=== PATIENT | male | born 1930 | race Caucasian/White ===

== ENCOUNTER 2018-02-08 21:30 | Emergency (ER) | payer MEDICARE, BC ==
--- NOTE | 2018-02-08 23:37 | EDM.PDOC ---
ED HPI GENERAL MEDICAL PROBLEM - General Chief Complaint: General Stated Complaint: WEAKNESS Time Seen by Provider: 02/08/18 21:43 Source of Information: Reports: Patient, Family (son) History Limitations: Reports: Altered Mental Status, Physical Impairment - History of Present Illness INITIAL COMMENTS - FREE TEXT/NARRATIVE: 87 y.o.w.m with a h/o multiple CVAs came to the ed with his son after he was expost to extreme heat at his [place] apartment. As per son, temp was >90 F. his dad had difficulty to ambulate which prompted the son to bring his dad to our ed. As the Pt arrived, he was OX3 and did not have acute focal neurological weaknesses, no acute medical issues. BP 171/89 Pulse 104 RR 18 Pulse ox 94% on RA Onset Date: 02/08/18 Onset Time: 07:00 Duration: Hour(s): Location: Reports: Generalized Quality: Reports: Same as Previous Episode Improves with: Reports: Rest Worsens with: Reports: Movement Context: Reports: Other (H/O CVAs) Associated Symptoms: Reports: Loss of Appetite, Shortness of Breath - Related Data Allergies Allergy/AdvReac Type Severity Reaction Status Date / Time cephalexin monohydrate Allergy Vomiting Verified 02/08/18 21:39 [From Keflex] morphine Allergy Confusion Verified 02/08/18 21:39 amoxicillin trihydrate AdvReac Nausea and Verified 02/08/18 21:39 [From Augmentin] Vomiting codeine AdvReac Nausea and Verified 02/08/18 21:39 Vomiting hydrocodone AdvReac Nausea and Verified 02/08/18 21:39 Vomiting potassium clavulanate AdvReac Nausea and Verified 02/08/18 21:39 [From Augmentin] Vomiting simvastatin AdvReac Muscle Verified 02/08/18 21:39 Aches Home Meds: Home Meds . [Unable to Verify Home Med List] 02/08/18 [History] Past Medical History Respiratory History: Reports: COPD Neurological History: Reports: CVA - Past Surgical History Other Musculoskeletal Surgeries/Procedures:: BACK SURGERY, PARTIAL FINGER AMPUTATION Social & Family History - Tobacco Use Smoking Status *Q: Former Smoker Used Tobacco, but Quit: Yes Month/Year Tobacco Last Used: 2012 - Living Situation & Occupation Living situation: Reports: ED ROS GENERAL - Review of Systems Review Of Systems: Unable To Obtain ED EXAM, GENERAL - Physical Exam Exam: See Below Exam Limited By: Altered Mental Status General Appearance: Alert, WD/WN, Mild Distress Eye Exam: Bilateral Eye: Normal Inspection Ears: Normal External Exam Ear Exam: Bilateral Ear: Auricle Normal Nose: Normal Inspection, Normal Mucosa, No Blood Throat/Mouth: Normal Inspection, Normal Lips, Normal Gums, Normal Voice, No Airway Compromise Head: Atraumatic, Normocephalic Neck: Normal Inspection, Supple, Non-Tender, Full Range of Motion Respiratory/Chest: No Respiratory Distress, Normal Breath Sounds, No Accessory Muscle Use, Rhonchi Cardiovascular: Normal Peripheral Pulses, Regular Rate, Rhythm, No Edema, No Gallop, No JVD, No Murmur, No Rub GI/Abdominal: Normal Bowel Sounds, Soft, Non-Tender, No Organomegaly, No Abnormal Bruit, No Mass, Pelvis Stable (Male) Exam: Deferred Rectal (Males) Exam: Deferred Back Exam: Normal Inspection Extremities: Normal Inspection, Normal Range of Motion, Non-Tender, No Pedal Edema Neurological: Alert, Oriented, CN II-XII Intact, Normal Cognition, Abnormal Gait (walks with walker) Psychiatric: Normal Affect, Normal Mood Skin Exam: Warm, Dry, Intact, Normal Color, No Rash Lymphatic: No Adenopathy Course - Vital Signs Text/Narrative:: 87 y.o.w.m with a h/o multiple CVAs came to the ed with his son after he was expost to extreme heat at his [facility] apartment. As per son, temp was >90 F. his dad had difficulty to ambulate which prompted the son to bring his dad to our ed. As the Pt arrived, he was OX3 and did not have acute focal neurological weaknesses, no acute medical issues. BP 171/89 Pulse 104 RR 18 Pulse ox 94% on RA PE: weak appearing 87 y.o.w.m with a h/o CVAs and HTN CXR: NAD Impression: H/O ministrokes, Gen weakness, dehydration Tx: Water Reexam: Improved Plan: D/C with instructions with his son Last Recorded V/S: Last Vital Signs Temp 37.0 C 02/08/18 21:43 Pulse 94 02/08/18 21:45 Resp 24 H 02/08/18 23:15 BP 182/91 H 02/08/18 23:15 Pulse Ox 97 02/08/18 23:15 - Orders/Labs/Meds Orders: Active Orders 24 hr Category Date Time Status Chest 1V Frontal [CR] Stat Exams 02/08/18 22:27 Taken UA W/MICROSCOPIC [URIN] Stat Lab 02/08/18 23:20 Ordered Labs: Laboratory Tests 02/08/18 02/08/18 02/08/18 Range/Units 22:36 22:36 22:36 WBC 8.9 (4.5-12.0) X10-3/uL RBC 4.07 L (4.30-5.75) x10(6)uL Hgb 12.4 (11.5-15.5) g/dL Hct 36.8 (30.0-51.3) % MCV 90.3 (80-96) fL MCH 30.5 (27.7-33.6) pg MCHC 33.8 (32.2-35.4) g/dL RDW 15.4 (11.5-15.5) % Plt Count 268 (125-369) X10(3)uL MPV 8.2 (7.4-10.4) fL Neut % (Auto) 74.3 (46-82) % Lymph % (Auto) 11.5 L (13-37) % [place] % (Auto) 8.1 (4-12) % Eos % (Auto) 3 (1.0-5.0) % Baso % (Auto) 3 H (0-2) % Neut # (Auto) 6.6 (1.6-8.3) # Lymph # (Auto) 1.0 (0.6-5.0) # [place] # (Auto) 0.7 (0.0-1.3) # Eos # (Auto) 0.3 (0.0-0.8) # Baso # (Auto) 0.3 H (0.0-0.2) # Sodium 135 (135-145) mmol/L Potassium 4.2 (3.5-5.3) mmol/L Chloride 100 (100-110) mmol/L Carbon Dioxide 28 (21-32) mmol/L BUN 25 H (7-18) mg/dL Creatinine 1.1 (0.70-1.30) mg/dL Est Cr Clr Drug Dosing TNP Estimated GFR (MDRD) > 60 (>60) BUN/Creatinine Ratio 22.7 H (9-20) Glucose 118 H (80-116) mg/dL Lactic Acid 0.8 (0.4-2.2) mmol/L Calcium 9.0 (8.6-10.2) mg/dL Total Bilirubin 0.5 (0.1-1.3) mg/dL Direct Bilirubin 0.07 L (0.10-0.20) mg/dL AST 24 (5-25) IU/L ALT 21 (12-36) U/L Alkaline Phosphatase 70 (56-112) IU/L Total Protein 6.9 (6.0-8.0) g/dL Albumin 3.7 (3.2-4.6) g/dL Urine Color (YELLOW) Urine Appearance (CLEAR) Urine pH (5.0-6.5) Ur Specific [place] (1.010-1.025) Urine Protein (NEGATIVE) mg/dL Urine Glucose (UA) (NEGATIVE) mg/dL Urine Ketones (NEGATIVE) mg/dL Urine Occult Blood (NEGATIVE) Urine Nitrite (NEGATIVE) Urine Bilirubin (NEGATIVE) Urine Urobilinogen (NEGATIVE) mg/dL Ur Leukocyte Esterase (NEGATIVE) Urine RBC (0) Urine WBC (0) Ur Squamous Epith Cells (NS,R,O) Urine Bacteria (NS) 02/08/18 Range/Units 23:20 WBC (4.5-12.0) X10-3/uL RBC (4.30-5.75) x10(6)uL Hgb (11.5-15.5) g/dL Hct (30.0-51.3) % MCV (80-96) fL MCH (27.7-33.6) pg MCHC (32.2-35.4) g/dL RDW (11.5-15.5) % Plt Count (125-369) X10(3)uL MPV (7.4-10.4) fL Neut % (Auto) (46-82) % Lymph % (Auto) (13-37) % [place] % (Auto) (4-12) % Eos % (Auto) (1.0-5.0) % Baso % (Auto) (0-2) % Neut # (Auto) (1.6-8.3) # Lymph # (Auto) (0.6-5.0) # [place] # (Auto) (0.0-1.3) # Eos # (Auto) (0.0-0.8) # Baso # (Auto) (0.0-0.2) # Sodium (135-145) mmol/L Potassium (3.5-5.3) mmol/L Chloride (100-110) mmol/L Carbon Dioxide (21-32) mmol/L BUN (7-18) mg/dL Creatinine (0.70-1.30) mg/dL Est Cr Clr Drug Dosing Estimated GFR (MDRD) (>60) BUN/Creatinine Ratio (9-20) Glucose (80-116) mg/dL Lactic Acid (0.4-2.2) mmol/L Calcium (8.6-10.2) mg/dL Total Bilirubin (0.1-1.3) mg/dL Direct Bilirubin (0.10-0.20) mg/dL AST (5-25) IU/L ALT (12-36) U/L Alkaline Phosphatase (56-112) IU/L Total Protein (6.0-8.0) g/dL Albumin (3.2-4.6) g/dL Urine Color Yellow (YELLOW) Urine Appearance Clear (CLEAR) Urine pH 5.0 (5.0-6.5) Ur Specific [place] 1.025 (1.010-1.025) Urine Protein Negative (NEGATIVE) mg/dL Urine Glucose (UA) Normal (NEGATIVE) mg/dL Urine Ketones Negative (NEGATIVE) mg/dL Urine Occult Blood Negative (NEGATIVE) Urine Nitrite Negative (NEGATIVE) Urine Bilirubin Negative (NEGATIVE) Urine Urobilinogen Normal (NEGATIVE) mg/dL Ur Leukocyte Esterase Negative (NEGATIVE) Urine RBC 0-5 (0) Urine WBC 0-5 (0) Ur Squamous Epith Cells Occasional (NS,R,O) Urine Bacteria Few H (NS) Departure - Departure Time of Disposition: 23:47 Disposition: Home, Self-Care 01 Condition: Good Clinical Impression: Dehydration, H/O: CVA (cerebrovascular accident) - Discharge Information Referrals: Abraham Templeton MD [Primary Care Provider] - Forms: ED Department Discharge Additional Instructions: Please increase water intake, please con your meds, please f/u, come back if acutely worse. - My Orders Last 24 Hours: My Active Orders 02/08/18 22:27 Chest 1V Frontal [CR] Stat 02/08/18 23:20 UA W/MICROSCOPIC [URIN] Stat - Assessment/Plan Last 24 Hours: My Active Orders 02/08/18 22:27 Chest 1V Frontal [CR] Stat 02/08/18 23:20 UA W/MICROSCOPIC [URIN] Stat
[2018-02-08 23:44] VITALS: BP 182/91
--- NOTE | 2018-02-10 13:16 | CR ---
INDICATION: Short of breath. CHEST: A portable AP upright view of the chest 02/08/2018 was compared with 01/2012 and 11/12/2014. The heart did not appear grossly enlarged. The aorta is tortuous with calcification in the arch. Overlying EKG leads and snaps are noted. A definite active infiltrate or effusion was not identified. However, markings are somewhat heavy at the left lung base, making it difficult to exclude minimal patchy bronchopneumonia. Full inspiration PA and lateral views of the chest may be helpful when clinically possible. IMPRESSION: Cannot exclude patchy bronchopneumonia at the left lower lobe area and lingula. Full inspiration PA and lateral views of the chest may be helpful for further evaluation. MTDD
== END 2018-02-08 23:53 | disposition home or self-care (01) ==
LOC: FB.ED 21:30
DX: E86.0 Dehydration (principal); I10 Essential (primary) hypertension; J44.9 Chronic obstructive pulmonary disease, unspecified; Z87.891 Personal history of nicotine dependence; Z88.8 Allergy status to other drugs, medicaments and biological substances; Z86.73 Personal history of transient ischemic attack (TIA), and cerebral infarction without residual deficits
CPT/HCPCS: 36415; 71045; 80048; 80076; 81001; 83605; 85025; 99285

== ENCOUNTER 2018-02-24 09:12 | Emergency (ER) | payer MEDICARE, BC ==
[2018-02-24] MEDS ORDERED: Ketorolac 30 MG/ML SDV IM ONE (09:48)
--- NOTE | 2018-02-24 10:06 | EDM.PDOC ---
ED HPI GENERAL MEDICAL PROBLEM - General Chief Complaint: Back Pain or Injury Stated Complaint: LOW BACK PAIN Time Seen by Provider: 02/24/18 09:30 Source of Information: Reports: Patient, Family History Limitations: Reports: No Limitations - History of Present Illness INITIAL COMMENTS - FREE TEXT/NARRATIVE: John comes to [facility] ED for management of low back pain following a fall last weekend. He saw a DC yesterday for adjustments, but back pain seemed to escalate last pm. He has not been med compliant with NSAIDs for chronic back pain related to Lumbar Stenosis. Other hx includes COPD and PVD. - Related Data Allergies Allergy/AdvReac Type Severity Reaction Status Date / Time cephalexin monohydrate Allergy Vomiting Verified 02/08/18 21:39 [From Keflex] morphine Allergy Confusion Verified 02/08/18 21:39 amoxicillin trihydrate AdvReac Nausea and Verified 02/08/18 21:39 [From Augmentin] Vomiting codeine AdvReac Nausea and Verified 02/08/18 21:39 Vomiting hydrocodone AdvReac Nausea and Verified 02/08/18 21:39 Vomiting potassium clavulanate AdvReac Nausea and Verified 02/08/18 21:39 [From Augmentin] Vomiting simvastatin AdvReac Muscle Verified 02/08/18 21:39 Aches Home Meds: Home Meds traMADol [Ultram] 50 mg PO Q6H PRN #20 tab 02/24/18 [Rx] Past Medical History Respiratory History: Reports: COPD Neurological History: Reports: CVA - Past Surgical History Other Musculoskeletal Surgeries/Procedures:: BACK SURGERY, PARTIAL FINGER AMPUTATION Social & Family History - Living Situation & Occupation Living situation: Reports: ED ROS GENERAL - Review of Systems Review Of Systems: See Below Constitutional: Reports: Malaise HEENT: Reports: No Symptoms Respiratory: Reports: Shortness of Breath Cardiovascular: Reports: Claudication, Dyspnea on Exertion Endocrine: Reports: No Symptoms GI/Abdominal: Reports: No Symptoms : Reports: No Symptoms Musculoskeletal: Reports: Back Pain Skin: Reports: Bruising Neurological: Reports: Pre-Existing Deficit (Hx CVA), Tingling, Difficulty Walking, Weakness Psychiatric: Reports: Other (memory impairments) Hematologic/Lymphatic: Reports: No Symptoms Immunologic: Reports: No Symptoms ED EXAM,LOWER BACK PAIN/INJURY - Physical Exam Exam: See Below Exam Limited By: No Limitations General Appearance: Alert, WD/WN, No Apparent Distress, Thin Head: Atraumatic, Normocephalic Neck: Normal Inspection, Supple, Non-Tender Respiratory/Chest: No Respiratory Distress, No Accessory Muscle Use, Decreased Breath Sounds, Crackles, Prolonged Expiration Cardiovascular: Regular Rate, Rhythm, No Edema, No JVD, No Murmur GI/Abdominal: Normal Bowel Sounds, Soft, Non-Tender, No Organomegaly, No Distention, No Mass (Male) Exam: No Hernia Rectal (Males) Exam: Deferred Back Exam: Decreased Range of Motion, Paraspinal Tenderness Extremities: Non-Tender, No Pedal Edema, Limited Range of Motion (RSLR R>L), Other (no palp pulse L foot) Neurological: Alert, CN II-XII Intact, Normal Plantar Flexion, Oriented x 3 Psychiatric: Normal Mood, Flat Affect Skin Exam: Dry, Cool (L foot) Lymphatic: No Adenopathy Course - Vital Signs Text/Narrative:: Following assessment at the [facility] ED, I administered Toradol 30 mg IM, and sent patient to Diagnostic Imaging for Lumbar Spine: compressoin fx L1, age unknown. I discussed case with radiologist, and will order a limited bone scan to rule out a new compression fx. Family is in agreement. I dispensed Tramadol 50 mg q 6 hrs for breakthrough pain pending results of bone scan. - Orders/Labs/Meds Orders: Active Orders 24 hr Category Date Time Status Bone Scan Limited [NM] Stat Exams 02/24/18 10:53 Ordered Lumbar Spine 2 or 3V [CR] Stat Exams 02/24/18 10:06 Taken Meds: Medications Discontinued Medications Generic Name Dose Route Start Last Admin Trade Name Kasia PRN Reason Stop Dose Admin Ketorolac Tromethamine 30 mg 02/24/18 09:48 02/24/18 10:03 Toradol IM 02/24/18 09:49 30 mg ONETIME ONE Administration Departure - Departure Time of Disposition: 10:58 Disposition: Home, Self-Care 01 Condition: Fair Clinical Impression: Back pain due to injury - Discharge Information Prescriptions: traMADol [Ultram] 50 mg PO Q6H PRN #20 tab PRN Reason: Breakthrough Pain Referrals: Abraham Templeton MD [Primary Care Provider] - Forms: ED Department Discharge - Problem List & Annotations (1) Back pain due to injury SNOMED Code(s): 501145584, 723724536 Code(s): S39.92XA - UNSPECIFIED INJURY OF LOWER BACK, INITIAL ENCOUNTER Status: Acute Current Visit: Yes Annotation/Comment:: I dispensed Tramadol 50 mg q 6 hrs prn for back pain. A bone scan is being scheduled for this week to rule out a new compression fx. [facility] or prospect of SNF if sxs persist. - Problem List Review Problem List Initiated/Reviewed/Updated: Yes - My Orders Last 24 Hours: My Active Orders 02/24/18 10:06 Lumbar Spine 2 or 3V [CR] Stat 02/24/18 10:53 Bone Scan Limited [NM] Stat - Assessment/Plan Last 24 Hours: My Active Orders 02/24/18 10:06 Lumbar Spine 2 or 3V [CR] Stat 02/24/18 10:53 Bone Scan Limited [NM] Stat Plan: Follow up with PCP.
--- NOTE | 2018-02-24 12:01 | CR ---
INDICATION: Fell last Friday, low back pain, history of spinal stenosis. LUMBOSACRAL SPINE: Three views of the lumbosacral spine were obtained 2017 and were compared with MRI dated 01/31/2015. Diminished bone density is suggested with a severe osteoporotic compression fracture at L1, which is of indeterminate age. It is new, however, compared with an MRI dated 01/31/2015. Even if most of the compression is old, a new minimal compression could also be present. Depending upon clinical correlation, the age of the fracture could be further determined by nuclear medicine bone imaging or MRI, as felt to be necessary clinically. Decreased disk space is suggested at L5-S1. Hypertrophic degenerative changes are noted off vertebral bodies anteriorly at L2-3 to a mild degree, L3-4 to a mild to moderate degree, L4-5 to a mild to moderate degree, and to a moderate degree at L5-S1. Sclerosis at the L5-S1 apophyseal joints is also suggested with hypertrophic change there. Incidentally noted were calcifications in the abdominal aorta and iliac arteries. A stimulator wire is noted in place posteriorly at the lumbar spine. IMPRESSION: 1. 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 2. Degenerative disk disease L5-S1 with hypertrophic degenerative changes at L2 through S1. 3. ASD. Report was given in person to Dr. Araya soon after the examination was completed on 02/24/2018. [facility]
[2018-02-24 14:42] VITALS: BP 149/56
== END 2018-02-24 11:32 | disposition home or self-care (01) ==
LOC: FB.ED 09:12
DX: S39.92XA Unspecified injury of lower back, initial encounter (principal); Z88.5 Allergy status to narcotic agent; Z88.6 Allergy status to analgesic agent; X50.0XXA Overexertion from strenuous movement or load, initial encounter
CPT/HCPCS: 72100; 96372; 99284; J1885

== ENCOUNTER 2019-03-02 13:31 | Observation (INO) | payer MEDICARE, BC ==
[2019-03-02] MEDS ORDERED: NAPROXEN SODIUM 220 MG PO PRN (14:40)
[2019-03-02] MEDS: methylPREDNISolone Sodium Succinate 125 MG/2 ML SDV IVPUSH SCH (16:25)
[2019-03-02] MEDS: Azithromycin 500 MG in Sodium Chloride 0.9% 250 ML IV SCH (16:25)
[2019-03-02] MEDS: Albuterol/Ipratropium 3.0-0.5 MG/3 ML Neb Soln *PTOM NEB SCH ×2 (16:25→21:11)
[2019-03-02] MEDS: Sodium Chloride 0.9% 10 ML Syringe FLUSH PRN ×2 (16:26→20:37)
[2019-03-02] MEDS ORDERED: Albuterol/Ipratropium 3.0-0.5 MG/3 ML Neb Soln *PTOM NEB PRN (16:37)
--- NOTE | 2019-03-02 17:59 | PCM.HP ---
H&P History of Present Illness - General Date of Service: 03/02/19 Admit Problem/Dx: Admission Diagnosis/Problem Admission Diagnosis/Problem COPD with acute lower respiratory infection Source of Information: Patient, Old Records History Limitations: Reports: No Limitations - History of Present Illness Initial Comments - Free Text/Narative: Generalities and 88-year-old male from to [facility]. He was admitted directly from the clinic because of progressive shortness of breath. He has a history of pulmonary fibrosis but the last one week he has had cough,wheezing and increasing shortness of breath, needing continuous oxygen supplementation. Typically he uses oxygen at night only.He denies chest pain fever or chills. Generalized also has a history [id number] peripheral vascular disease, and also arthritis of the major joints.These have been stable. - Related Data Allergies/Adverse Reactions: Allergies Allergy/AdvReac Type Severity Reaction Status Date / Time cephalexin monohydrate Allergy Vomiting Verified 02/08/18 21:39 [From Keflex] morphine Allergy Confusion Verified 02/08/18 21:39 amoxicillin trihydrate AdvReac Nausea and Verified 02/08/18 21:39 [From Augmentin] Vomiting codeine AdvReac Nausea and Verified 02/08/18 21:39 Vomiting hydrocodone AdvReac Nausea and Verified 02/08/18 21:39 Vomiting potassium clavulanate AdvReac Nausea and Verified 02/08/18 21:39 [From Augmentin] Vomiting simvastatin AdvReac Muscle Verified 02/08/18 21:39 Aches Home Medications: Home Meds Budesonide/Formoterol [Symbicort 80-4.5 MCG] 2 puff INH BID 02/24/18 [History] Dextran 70/Hypromellose [Artificial Tears] 1 - 2 drop EYEBOTH TID 02/24/18 [ History] Finasteride 5 mg PO DAILY 02/24/18 [History] Naproxen Sodium [Aleve] 440 mg PO BID PRN 02/24/18 [History] Sertraline [Zoloft] 200 mg PO DAILY 02/24/18 [History] Tamsulosin [Flomax] 0.4 mg PO DAILY 02/24/18 [History] Temazepam 15 mg PO BEDTIME 02/24/18 [History] Albuterol/Ipratropium [DuoNeb 3.0-0.5 MG/3 ML] 3 ml IH Q4H PRN 03/02/19 [History ] Albuterol/Ipratropium [DuoNeb 3.0-0.5 MG/3 ML] 3 ml IH TID 03/02/19 [History] Furosemide 40 mg PO DAILY 03/02/19 [History] Tiotropium [place] [Spiriva Respimat] 2 puff IH DAILY 03/02/19 [History] Past Medical History HEENT History: Reports: Cataract, Hard of Hearing, Impaired Vision Cardiovascular History: Reports: PVD Respiratory History: Reports: Bronchitis, Recurrent, COPD Neurological History: Reports: CVA - Infectious Disease History Infectious Disease History: Reports: None - Past Surgical History HEENT Surgical History: Reports: Cataract Surgery Other Musculoskeletal Surgeries/Procedures:: BACK SURGERY, PARTIAL FINGER AMPUTATION Social & Family History - Family History Family Medical History: Noncontributory - Tobacco Use Smoking Status *Q: Former Smoker Years of Tobacco use: 68 Used Tobacco, but Quit: Yes Month/Year Tobacco Last Used: Sep 2014 Tobacco Use Comment: patient unsure of exact date of quiting, states it was when he moved into [facility] [employer] Smoke Exposure: No - Caffeine Use Caffeine Use: Reports: Coffee - Alcohol Use Days Per Week of Alcohol Use: 1 Number of Drinks Per Day: 1 Total Drinks Per Week: 1 Date of Last Drink: 03/01/19 Time of Last Drink: 18:30 - Recreational Drug Use Recreational Drug Use: No - Living Situation & Occupation Living situation: Reports: H&P Review of Systems - Review of Systems: Review Of Systems: ROS reveals no pertinent complaints other than HPI. Exam - Exam Exam: See Below - Vital Signs Vital Signs: Last Vital Signs Temp 99.5 F 03/02/19 14:21 Pulse 98 03/02/19 16:33 Resp 20 03/02/19 14:21 BP 113/63 03/02/19 14:21 Pulse Ox 98 03/02/19 16:33 Weight: 78.8 kg - Exam Quality Assessment: Supplemental Oxygen General: Alert, Oriented, 4 HEENT: PERRLA, Hearing Intact, Mucosa Moist & [place], Nares Patent, Normal Nasal Septum, Posterior Pharynx Clear, Conjunctiva Clear, EOMI, EACs Clear, TMs Clear Neck: Supple, Trachea Midline, 2 Lungs: Decreased Breath Sounds, Rhonchi Cardiovascular: Regular Rate, Regular Rhythm GI/Abdominal Exam: Normal Bowel Sounds, Soft, Non-Tender, No Organomegaly, No Distention, No Abnormal Bruit, No Mass, Pelvis Stable (Male) Exam: Deferred Rectal (Males) Exam: Deferred Back Exam: Normal Inspection, Full Range of Motion, NT Extremities: Normal Inspection, Normal Range of Motion, Non-Tender, No Pedal Edema, Normal Capillary Refill Skin: Warm, Dry, Intact Neurological: Cranial Nerves Intact, Reflexes Equal Bilateral Neuro Extensive - Mental Status: Alert, Oriented x3, Normal Mood/Affect, Normal Cognition Neuro Extensive - Motor, Sensory, Reflexes: CN II-XII Intact, Normal Gait, Normal Reflexes Psychiatric: Alert, Normal Affect, Normal Mood - Patient Data Lab Results Last 24 hrs: Laboratory Results - last 24 hr 03/02/19 03/02/19 03/02/19 Range/Units 14:40 14:40 14:40 WBC 11.4 (4.5-12.0) X10-3/uL RBC 3.86 L (4.30-5.75) x10(6)uL Hgb 12.2 L (13.5-17.8) g/dL Hct 34.9 (30.0-51.3) % MCV 90.3 (80-96) fL MCH 31.6 (27.7-33.6) pg MCHC 35.0 (32.2-35.4) g/dL RDW 14.6 (11.5-15.5) % Plt Count 322 (125-369) X10(3)uL MPV 8.5 (7.4-10.4) fL Neut % (Auto) 73.7 (46-82) % Lymph % (Auto) 12.7 L (13-37) % [place] % (Auto) 6.3 (4-12) % Eos % (Auto) 3 (1.0-5.0) % Baso % (Auto) 4 H (0-2) % Neut # (Auto) 8.3 (1.6-8.3) # Lymph # (Auto) 1.5 (0.6-5.0) # [place] # (Auto) 0.7 (0.0-1.3) # Eos # (Auto) 0.4 (0.0-0.8) # Baso # (Auto) 0.5 H (0.0-0.2) # D-Dimer, Quantitative 1.79 H (0.0-0.59) mg/LFEU Sodium 141 (135-145) mmol/L Potassium 3.8 (3.5-5.3) mmol/L Chloride 103 (100-110) mmol/L Carbon Dioxide 30 (21-32) mmol/L BUN 30 H (7-18) mg/dL Creatinine 1.4 H (0.70-1.30) mg/dL Est Cr Clr Drug Dosing 39.11 mL/min Estimated GFR (MDRD) 48 L (>60) BUN/Creatinine Ratio 21.4 H (9-20) Glucose 105 (80-116) mg/dL Calcium 8.8 (8.6-10.2) mg/dL Total Bilirubin 0.3 (0.1-1.3) mg/dL AST 19 D (5-25) IU/L ALT 26 D (12-36) U/L Alkaline Phosphatase 71 (56-112) IU/L Troponin I (<0.017-0.056) ng/mL NT-Pro-B Natriuret Pep (<=450) pg/mL Total Protein 6.5 (6.0-8.0) g/dL Albumin 3.2 (3.2-4.6) g/dL Globulin 3.3 g/dL Albumin/Globulin Ratio 1.0 /18/19 Range/Units 14:40 WBC (4.5-12.0) X10-3/uL RBC (4.30-5.75) x10(6)uL Hgb (13.5-17.8) g/dL Hct (30.0-51.3) % MCV (80-96) fL MCH (27.7-33.6) pg MCHC (32.2-35.4) g/dL RDW (11.5-15.5) % Plt Count (125-369) X10(3)uL MPV (7.4-10.4) fL Neut % (Auto) (46-82) % Lymph % (Auto) (13-37) % [place] % (Auto) (4-12) % Eos % (Auto) (1.0-5.0) % Baso % (Auto) (0-2) % Neut # (Auto) (1.6-8.3) # Lymph # (Auto) (0.6-5.0) # [place] # (Auto) (0.0-1.3) # Eos # (Auto) (0.0-0.8) # Baso # (Auto) (0.0-0.2) # D-Dimer, Quantitative (0.0-0.59) mg/LFEU Sodium (135-145) mmol/L Potassium (3.5-5.3) mmol/L Chloride (100-110) mmol/L Carbon Dioxide (21-32) mmol/L BUN (7-18) mg/dL Creatinine (0.70-1.30) mg/dL Est Cr Clr Drug Dosing mL/min Estimated GFR (MDRD) (>60) BUN/Creatinine Ratio (9-20) Glucose (80-116) mg/dL Calcium (8.6-10.2) mg/dL Total Bilirubin (0.1-1.3) mg/dL AST (5-25) IU/L ALT (12-36) U/L Alkaline Phosphatase (56-112) IU/L Troponin I < 0.017 L (<0.017-0.056) ng/mL NT-Pro-B Natriuret Pep 841 H (<=450) pg/mL Total Protein (6.0-8.0) g/dL Albumin (3.2-4.6) g/dL Globulin g/dL Albumin/Globulin Ratio Result Diagrams: 03/02/19 14:40 03/02/19 14:40 EKG INTERPRETATION Rhythm: NSR - Problem List (1) COLD, Chronic obstructive lung disease SNOMED Code(s): 74069860 ICD Code: J44.9 - CHRONIC OBSTRUCTIVE PULMONARY DISEASE, UNSPECIFIED Status : Acute Current Visit: No (2) PAD (peripheral artery disease) SNOMED Code(s): 661669719, 228371456 ICD Code: I73.9 - PERIPHERAL VASCULAR DISEASE, UNSPECIFIED Status: Acute Current Visit: Yes (3) H/O CHF SNOMED Code(s): 876989351 ICD Code: Z86.79 - PERSONAL HISTORY OF OTHER DISEASES OF THE CIRCULATORY SYSTEM Status: Acute Current Visit: Yes (4) MDD (major depressive disorder) SNOMED Code(s): 741124396 ICD Code: F32.9 - MAJOR DEPRESSIVE DISORDER, SINGLE EPISODE, UNSPECIFIED Status: Acute Current Visit: Yes Problem List Initiated/Reviewed/Updated: Yes Orders Last 24hrs: Active Orders 24 hr Category Date Time Status Patient Status [ADT] Routine ADT 03/02/19 14:37 Active EKG Documentation Completion [RC] ASDIRECTED Care 03/02/19 14:39 Active Height and Weight [RC] DAILY Care 03/02/19 14:37 Active Oxygen Therapy [RC] PRN Care 03/02/19 14:37 Active RT Aerosol Therapy [RC] ASDIRECTED Care 03/02/19 14:38 Active Up With Assistance [RC] ASDIRECTED Care 03/02/19 14:37 Active VTE/DVT Education [RC] Per Unit Routine Care 03/02/19 14:37 Active Vital Signs [RC] Q8H Care 03/02/19 14:37 Active Regular Diet [DIET] Diet 03/02/19 Breakfast Active Chest w Cont [CT] Routine Exams 03/02/19 17:54 Ordered Albuterol/Ipratropium [DuoNeb 3.0-0.5 MG/3 ML] Med 03/02/19 16:37 Active 3 ml NEB Q6H PRN Albuterol/Ipratropium [DuoNeb 3.0-0.5 MG/3 ML] Med 03/02/19 16:00 Active 3 ml NEB QIDRT Azithromycin [Zithromax] 500 mg Med 03/02/19 16:00 Active Sodium Chloride 0.9% [Normal Saline] 250 ml IV Q24H Budesonide/Formoterol [Symbicort 80-4.5 MCG] Med 03/02/19 21:00 Pending 2 puff INH BID Finasteride [Proscar] Med 03/03/19 09:00 Pending 5 mg PO DAILY Furosemide [Lasix] Med 03/03/19 09:00 Pending 40 mg PO DAILY Naproxen Sodium Med 03/02/19 14:40 Pending 440 mg PO BID PRN Sertraline [Zoloft] Med 03/03/19 09:00 Pending 200 mg PO DAILY Sodium Chloride 0.9% [Saline Flush] Med 03/02/19 14:37 Active 10 ml FLUSH ASDIRECTED PRN Tamsulosin [Flomax] Med 03/03/19 09:00 Pending 0.4 mg PO DAILY Temazepam [Restoril] Med 03/02/19 21:00 Active 15 mg PO BEDTIME methylPREDNISolone Sod Succ [Solu-MEDROL] Med 03/02/19 16:00 Active 125 mg IVPUSH Q8H Saline Lock Insert [OM.PC] Routine Oth 03/02/19 14:37 Ordered Resuscitation Status Routine Resus Stat 03/02/19 14:37 Ordered EKG 12 Lead [EK] Stat Ther 03/02/19 14:37 Ordered Medication Orders Albuterol/Ipratropium (Duoneb 3.0-0.5 Mg/3 Ml) 3 ml NEB QIDRT [facility] Last Admin: 03/02/19 16:25 Dose: 3 ml Albuterol/Ipratropium (Duoneb 3.0-0.5 Mg/3 Ml) 3 ml NEB Q6H PRN PRN Reason: BREATHING Finasteride (Proscar) 5 mg PO DAILY [facility] Furosemide (Lasix) 40 mg PO DAILY [facility] Azithromycin 500 mg/ Sodium (Chloride) 250 mls @ 250 mls/hr IV Q24H [facility] Last Admin: 03/02/19 16:25 Dose: 250 mls/hr Methylprednisolone Sodium Succinate (Solu-Medrol) 125 mg IVPUSH Q8H [facility] Last Admin: 03/02/19 16:25 Dose: 125 mg Naproxen (Naproxen Sodium) 440 mg PO BID PRN PRN Reason: MODERATE PAIN Non-Formulary Medication (Budesonide/Formoterol [Symbicort 80-4.5 Mcg]) 2 puff INH BID [facility] Sertraline HCl (Zoloft) 200 mg PO DAILY [facility] Sodium Chloride (Saline Flush) 10 ml FLUSH ASDIRECTED PRN PRN Reason: Keep Vein Open Last Admin: 03/02/19 16:26 Dose: 10 ml Tamsulosin HCl (Flomax) 0.4 mg PO DAILY [facility] Temazepam (Restoril) 15 mg PO BEDTIME [facility] Assessment/Plan Comment:: His D dimer is high,will obtain a CT of the chest. In the meantime I recommend continues oxygenation, so Medrol and IV azithromycin.
[2019-03-02] MEDS ORDERED: Iopamidol 755 Mg/ML 75 ML Bottle IV ONE (19:07)
[2019-03-02] MEDS: Temazepam 15 MG Cap PO SCH (21:11)
[2019-03-03] MEDS: methylPREDNISolone Sodium Succinate 125 MG/2 ML SDV IVPUSH SCH ×3 (00:51→16:02)
[2019-03-03] MEDS: Sodium Chloride 0.9% 10 ML Syringe FLUSH PRN ×3 (00:54→17:14)
[2019-03-03] MEDS: Albuterol/Ipratropium 3.0-0.5 MG/3 ML Neb Soln *PTOM NEB SCH ×4 (06:15→20:03)
[2019-03-03] MEDS: Tamsulosin 0.4 MG Cap.ER *PTOM PO SCH (09:30)
[2019-03-03] MEDS: Furosemide 40 MG Tab *PTOM PO SCH (09:30)
[2019-03-03] MEDS: Sertraline 100 MG Tab *PTOM PO SCH (09:31)
[2019-03-03] MEDS: Finasteride 5 MG Tab *PTOM PO SCH (09:31)
[2019-03-03] MEDS: Non-Formulary Medication 1 Each (Budesonide/Formoterol [Symbicort 80-4.5 Mcg] 2 PUFF) INH SCH ×2 (09:32→19:59)
--- NOTE | 2019-03-03 10:05 | PCM.PN ---
- General Info Date of Service: 03/03/19 Subjective Update: Slept well.No complaints Functional Status: Reports: Pain Controlled, Tolerating Diet - Review of Systems General: Reports: No Symptoms Pulmonary: Reports: Wheezing Cardiovascular: Reports: No Symptoms Gastrointestinal: Reports: No Symptoms - Patient Data Vitals - Most Recent: Last Vital Signs Temp 98.1 F 03/03/19 06:15 Pulse 76 03/03/19 06:15 Resp 20 03/03/19 06:15 BP 113/54 L 03/03/19 06:15 Pulse Ox 94 L 03/03/19 06:25 Weight - Most Recent: 79.379 kg I&O - Last 24 Hours: Intake & Output 03/02/19 03/03/19 03/03/19 22:59 06:59 14:59 Output Total 540 440 Balance -540 -440 Lab Results Last 24 Hours: Laboratory Results - last 24 hr 03/02/19 03/02/19 03/02/19 Range/Units 14:40 14:40 14:40 WBC 11.4 (4.5-12.0) X10-3/uL RBC 3.86 L (4.30-5.75) x10(6)uL Hgb 12.2 L (13.5-17.8) g/dL Hct 34.9 (30.0-51.3) % MCV 90.3 (80-96) fL MCH 31.6 (27.7-33.6) pg MCHC 35.0 (32.2-35.4) g/dL RDW 14.6 (11.5-15.5) % Plt Count 322 (125-369) X10(3)uL MPV 8.5 (7.4-10.4) fL Neut % (Auto) 73.7 (46-82) % Lymph % (Auto) 12.7 L (13-37) % [place] % (Auto) 6.3 (4-12) % Eos % (Auto) 3 (1.0-5.0) % Baso % (Auto) 4 H (0-2) % Neut # (Auto) 8.3 (1.6-8.3) # Lymph # (Auto) 1.5 (0.6-5.0) # [place] # (Auto) 0.7 (0.0-1.3) # Eos # (Auto) 0.4 (0.0-0.8) # Baso # (Auto) 0.5 H (0.0-0.2) # D-Dimer, Quantitative 1.79 H (0.0-0.59) mg/LFEU Sodium 141 (135-145) mmol/L Potassium 3.8 (3.5-5.3) mmol/L Chloride 103 (100-110) mmol/L Carbon Dioxide 30 (21-32) mmol/L BUN 30 H (7-18) mg/dL Creatinine 1.4 H (0.70-1.30) mg/dL Est Cr Clr Drug Dosing 39.11 mL/min Estimated GFR (MDRD) 48 L (>60) BUN/Creatinine Ratio 21.4 H (9-20) Glucose 105 (80-116) mg/dL Calcium 8.8 (8.6-10.2) mg/dL Total Bilirubin 0.3 (0.1-1.3) mg/dL AST 19 D (5-25) IU/L ALT 26 D (12-36) U/L Alkaline Phosphatase 71 (56-112) IU/L Troponin I (<0.017-0.056) ng/mL NT-Pro-B Natriuret Pep (<=450) pg/mL Total Protein 6.5 (6.0-8.0) g/dL Albumin 3.2 (3.2-4.6) g/dL Globulin 3.3 g/dL Albumin/Globulin Ratio 1.0 03/02/19 03/03/19 03/03/19 Range/Units 14:40 05:48 05:48 WBC 14.2 H (4.5-12.0) X10-3/uL RBC 3.83 L (4.30-5.75) x10(6)uL Hgb 12.0 L (13.5-17.8) g/dL Hct 34.6 (30.0-51.3) % MCV 90.2 (80-96) fL MCH 31.2 (27.7-33.6) pg MCHC 34.6 (32.2-35.4) g/dL RDW 14.8 (11.5-15.5) % Plt Count 306 (125-369) X10(3)uL MPV 8.4 (7.4-10.4) fL Neut % (Auto) 94.5 H (46-82) % Lymph % (Auto) 4.7 L (13-37) % [place] % (Auto) 0.7 L (4-12) % Eos % (Auto) 0 L (1.0-5.0) % Baso % (Auto) 0 (0-2) % Neut # (Auto) 13.3 H (1.6-8.3) # Lymph # (Auto) 0.7 (0.6-5.0) # [place] # (Auto) 0.1 (0.0-1.3) # Eos # (Auto) 0.0 (0.0-0.8) # Baso # (Auto) 0.0 (0.0-0.2) # D-Dimer, Quantitative (0.0-0.59) mg/LFEU Sodium 140 (135-145) mmol/L Potassium 4.7 (3.5-5.3) mmol/L Chloride 104 (100-110) mmol/L Carbon Dioxide 30 (21-32) mmol/L BUN 33 H (7-18) mg/dL Creatinine 1.3 (0.70-1.30) mg/dL Est Cr Clr Drug Dosing 42.12 mL/min Estimated GFR (MDRD) 52 L (>60) BUN/Creatinine Ratio 25.4 H (9-20) Glucose 150 H (80-116) mg/dL Calcium 8.8 (8.6-10.2) mg/dL Total Bilirubin (0.1-1.3) mg/dL AST (5-25) IU/L ALT (12-36) U/L Alkaline Phosphatase (56-112) IU/L Troponin I < 0.017 L (<0.017-0.056) ng/mL NT-Pro-B Natriuret Pep 841 H (<=450) pg/mL Total Protein (6.0-8.0) g/dL Albumin (3.2-4.6) g/dL Globulin g/dL Albumin/Globulin Ratio Med Orders - Current: Current Medications Albuterol/Ipratropium (Duoneb 3.0-0.5 Mg/3 Ml) 3 ml NEB QIDRT [facility] Last Admin: 03/03/19 06:15 Dose: 3 ml Albuterol/Ipratropium (Duoneb 3.0-0.5 Mg/3 Ml) 3 ml NEB Q6H PRN PRN Reason: BREATHING Finasteride (Proscar) 5 mg PO DAILY [facility] Last Admin: 03/03/19 09:31 Dose: 5 mg Furosemide (Lasix) 40 mg PO DAILY [facility] Last Admin: 03/03/19 09:30 Dose: 40 mg Azithromycin 500 mg/ Sodium (Chloride) 250 mls @ 250 mls/hr IV Q24H [facility] Last Admin: 03/02/19 16:25 Dose: 250 mls/hr Methylprednisolone Sodium Succinate (Solu-Medrol) 125 mg IVPUSH Q8H [facility] Last Admin: 03/03/19 09:30 Dose: 125 mg Naproxen (Naproxen Sodium) 440 mg PO BID PRN PRN Reason: MODERATE PAIN Non-Formulary Medication (Budesonide/Formoterol [Symbicort 80-4.5 Mcg]) 2 puff INH BID [facility] Last Admin: 03/03/19 09:32 Dose: 2 puff Sertraline HCl (Zoloft) 200 mg PO DAILY [facility] Last Admin: 03/03/19 09:31 Dose: 200 mg Sodium Chloride (Saline Flush) 10 ml FLUSH ASDIRECTED PRN PRN Reason: Keep Vein Open Last Admin: 03/03/19 09:31 Dose: 10 ml Tamsulosin HCl (Flomax) 0.4 mg PO DAILY [facility] Last Admin: 03/03/19 09:30 Dose: 0.4 mg Temazepam (Restoril) 15 mg PO BEDTIME [facility] Last Admin: 03/02/19 21:11 Dose: 15 mg Discontinued Medications Iopamidol (Isovue-370 (76%)) 75 ml IV ONETIME ONE Stop: 03/02/19 19:08 Last Admin: 03/02/19 20:16 Dose: 75 ml - Exam Quality Assessment: Supplemental Oxygen General: Alert HEENT: Pupils Equal Lungs: Crackles, Wheezing Cardiovascular: Regular Rate - Problem List & Annotations (1) COLD, Chronic obstructive lung disease SNOMED Code(s): 64177133 Code(s): J44.9 - CHRONIC OBSTRUCTIVE PULMONARY DISEASE, UNSPECIFIED Status : Acute Current Visit: No (2) PAD (peripheral artery disease) SNOMED Code(s): 517590806, 293199151 Code(s): I73.9 - PERIPHERAL VASCULAR DISEASE, UNSPECIFIED Status: Acute Current Visit: Yes (3) H/O CHF SNOMED Code(s): 563752410 Code(s): Z86.79 - PERSONAL HISTORY OF OTHER DISEASES OF THE CIRCULATORY SYSTEM Status: Acute Current Visit: Yes (4) MDD (major depressive disorder) SNOMED Code(s): 516319242 Code(s): F32.9 - MAJOR DEPRESSIVE DISORDER, SINGLE EPISODE, UNSPECIFIED Status: Acute Current Visit: Yes - Problem List Review Problem List Initiated/Reviewed/Updated: Yes - My Orders Last 24 Hours: My Active Orders 03/02/19 14:37 Patient Status [ADT] Routine Height and Weight [RC] DAILY Oxygen Therapy [RC] PRN Up With Assistance [RC] ASDIRECTED VTE/DVT Education [RC] Per Unit Routine Vital Signs [RC] Q8H Sodium Chloride 0.9% [Saline Flush] 10 ml FLUSH ASDIRECTED PRN Saline Lock Insert [OM.PC] Routine Resuscitation Status Routine EKG 12 Lead [EK] Stat 03/02/19 14:38 RT Aerosol Therapy [RC] ASDIRECTED 03/02/19 14:40 Naproxen Sodium 440 mg PO BID PRN 03/02/19 16:00 Albuterol/Ipratropium [DuoNeb 3.0-0.5 MG/3 ML] 3 ml NEB QIDRT Azithromycin [Zithromax] 500 mg Sodium Chloride 0.9% [Normal Saline] 250 ml IV Q24H methylPREDNISolone Sod Succ [Solu-MEDROL] 125 mg IVPUSH Q8H 03/02/19 16:37 Albuterol/Ipratropium [DuoNeb 3.0-0.5 MG/3 ML] 3 ml NEB Q6H PRN 03/02/19 17:54 Ang Chest [CT] Routine 03/02/19 21:00 Budesonide/Formoterol [Symbicort 80-4.5 MCG] 2 puff INH BID Temazepam [Restoril] 15 mg PO BEDTIME 03/03/19 09:00 Finasteride [Proscar] 5 mg PO DAILY Furosemide [Lasix] 40 mg PO DAILY Sertraline [Zoloft] 200 mg PO DAILY Tamsulosin [Flomax] 0.4 mg PO DAILY - Plan Plan:: CT was negative for pneumonia or PE. Will continue supportive therapy for COPD, DC home tomorrow with home health
[2019-03-03] MEDS: Magnesium Hydroxide 400 MG/5 ML Susp 30 ML Cup PO PRN ×2 (14:40→20:14)
[2019-03-03] MEDS: Azithromycin 500 MG in Sodium Chloride 0.9% 250 ML IV SCH (16:01)
[2019-03-03] MEDS: Temazepam 15 MG Cap PO SCH (20:14)
[2019-03-04] MEDS: methylPREDNISolone Sodium Succinate 125 MG/2 ML SDV IVPUSH SCH ×2 (00:30→08:45)
[2019-03-04] MEDS: Albuterol/Ipratropium 3.0-0.5 MG/3 ML Neb Soln *PTOM NEB SCH ×2 (06:28→13:01)
[2019-03-04] MEDS: Finasteride 5 MG Tab *PTOM PO SCH (07:59)
[2019-03-04] MEDS: Tamsulosin 0.4 MG Cap.ER *PTOM PO SCH (08:00)
[2019-03-04] MEDS: Furosemide 40 MG Tab *PTOM PO SCH (08:00)
[2019-03-04] MEDS: Non-Formulary Medication 1 Each (Budesonide/Formoterol [Symbicort 80-4.5 Mcg] 2 PUFF) INH SCH (08:00)
[2019-03-04] MEDS: Sertraline 100 MG Tab *PTOM PO SCH (08:00)
--- NOTE | 2019-03-04 08:35 | PCM.PN ---
- General Info Date of Service: 03/04/19 Subjective Update: Mild leg cramps.But doing well. Functional Status: Reports: Pain Controlled - Review of Systems General: Reports: No Symptoms HEENT: Reports: No Symptoms Pulmonary: Reports: Wheezing Cardiovascular: Reports: No Symptoms Gastrointestinal: Reports: No Symptoms Genitourinary: Reports: No Symptoms - Patient Data Vitals - Most Recent: Last Vital Signs Temp 98 F 03/04/19 00:40 Pulse 73 03/04/19 00:40 Resp 18 03/04/19 00:40 BP 112/62 03/04/19 00:40 Pulse Ox 93 L 03/04/19 00:40 Weight - Most Recent: 78.613 kg Med Orders - Current: Current Medications Albuterol/Ipratropium (Duoneb 3.0-0.5 Mg/3 Ml) 3 ml NEB QIDRT [facility] Last Admin: 03/04/19 06:28 Dose: 3 ml Albuterol/Ipratropium (Duoneb 3.0-0.5 Mg/3 Ml) 3 ml NEB Q6H PRN PRN Reason: BREATHING Last Admin: 03/04/19 00:32 Dose: 3 ml Finasteride (Proscar) 5 mg PO DAILY [facility] Last Admin: 03/04/19 07:59 Dose: 5 mg Furosemide (Lasix) 40 mg PO DAILY [facility] Last Admin: 03/04/19 08:00 Dose: 40 mg Azithromycin 500 mg/ Sodium (Chloride) 250 mls @ 250 mls/hr IV Q24H [facility] Last Admin: 03/03/19 16:01 Dose: 250 mls/hr Magnesium Hydroxide (Milk Of Magnesia) 30 ml PO Q4H PRN PRN Reason: Constipation Last Admin: 03/03/19 20:14 Dose: 30 ml Methylprednisolone Sodium Succinate (Solu-Medrol) 125 mg IVPUSH Q8H [facility] Last Admin: 03/04/19 00:30 Dose: 125 mg Naproxen (Naproxen Sodium) 440 mg PO BID PRN PRN Reason: MODERATE PAIN Non-Formulary Medication (Budesonide/Formoterol [Symbicort 80-4.5 Mcg]) 2 puff INH BID [facility] Last Admin: 03/04/19 08:00 Dose: 2 puff Sertraline HCl (Zoloft) 200 mg PO DAILY [facility] Last Admin: 03/04/19 08:00 Dose: 200 mg Sodium Chloride (Saline Flush) 10 ml FLUSH ASDIRECTED PRN PRN Reason: Keep Vein Open Last Admin: 03/03/19 17:14 Dose: 10 ml Tamsulosin HCl (Flomax) 0.4 mg PO DAILY [facility] Last Admin: 03/04/19 08:00 Dose: 0.4 mg Temazepam (Restoril) 15 mg PO BEDTIME [facility] Last Admin: 03/03/19 20:14 Dose: 15 mg Discontinued Medications Iopamidol (Isovue-370 (76%)) 75 ml IV ONETIME ONE Stop: 03/02/19 19:08 Last Admin: 03/02/19 20:16 Dose: 75 ml - Exam Quality Assessment: Supplemental Oxygen General: Alert, Oriented Neck: Supple Lungs: Clear to Auscultation, Decreased Breath Sounds Cardiovascular: Regular Rate - Problem List & Annotations (1) COLD, Chronic obstructive lung disease SNOMED Code(s): 74893132 Code(s): J44.9 - CHRONIC OBSTRUCTIVE PULMONARY DISEASE, UNSPECIFIED Status : Acute Current Visit: No (2) PAD (peripheral artery disease) SNOMED Code(s): 431426298, 284786698 Code(s): I73.9 - PERIPHERAL VASCULAR DISEASE, UNSPECIFIED Status: Acute Current Visit: Yes (3) H/O CHF SNOMED Code(s): 377076763 Code(s): Z86.79 - PERSONAL HISTORY OF OTHER DISEASES OF THE CIRCULATORY SYSTEM Status: Acute Current Visit: Yes (4) MDD (major depressive disorder) SNOMED Code(s): 787831441 Code(s): F32.9 - MAJOR DEPRESSIVE DISORDER, SINGLE EPISODE, UNSPECIFIED Status: Acute Current Visit: Yes - Problem List Review Problem List Initiated/Reviewed/Updated: Yes - My Orders Last 24 Hours: My Active Orders 03/03/19 09:00 Finasteride [Proscar] 5 mg PO DAILY Furosemide [Lasix] 40 mg PO DAILY Sertraline [Zoloft] 200 mg PO DAILY Tamsulosin [Flomax] 0.4 mg PO DAILY 03/03/19 14:06 Magnesium Hydroxide [Milk of Magnesia] 30 ml PO Q4H PRN - Plan Plan:: Will go to [facility] today,with HH,PT, and oral Prednisone
[2019-03-04] MEDS: Sodium Chloride 0.9% 10 ML Syringe FLUSH PRN (08:47)
[2019-03-04 09:11] VITALS: BP 126/59
--- NOTE | 2019-03-04 10:10 | DISCH ---
DISCHARGE DATE: 03/04/2019 REASON FOR ADMISSION: 1. Chronic obstructive pulmonary disease exacerbation. 2. Peripheral artery disease. 3. History of congestive heart failure. 4. Major depression. DISCHARGE DIAGNOSES: 1. Chronic obstructive pulmonary disease exacerbation. 2. Peripheral artery disease. 3. History of congestive heart failure. 4. Major depression. BRIEF HISTORY AND HOSPITAL COURSE: An 88-year-old male who has had a cough, wheezing, shortness of breath progressively worse over the last 2 weeks despite oral therapy. He continued to be hypoxic. He was admitted for IV Solu-Medrol. A CT of the chest was negative for pneumonia or pulmonary embolism . He was treated with IV Solu-Medrol and IV azithromycin. He is deemed ready to go home, however, he is homebound because of being short of breath and he did seem to be mixed up with his medications. As such, I recommended home health nurse and perhaps trial of physical therapy for leg discomfort and strengthening. DISCHARGE MEDICATIONS: 1. Prednisone 20 mg b.i.d. for 5 days. 2. He will also go home on albuterol as previously prescribed. 3. Furosemide 40 mg a day. 4. Sertraline 200 mg daily. 5. Flomax 0.4 mg daily. 6. Restoril 15 mg at bedtime. 7. He is also on Proscar 5 mg a day. 8. Symbicort 80/4.5 two puffs inhaled b.i.d. FOLLOWUP: Stella Clay, nurse-practitioner in the office in a week. I spent more than 35 minutes in the discharge of the patient. /[id number] BRITTANI/ENDY
== END 2019-03-04 11:37 | disposition home health service (06) ==
LOC: FB.MS 14:02
PROVIDERS: ADMIT Family Medicine; ATTEND Family Medicine
DX: J44.1 Chronic obstructive pulmonary disease with (acute) exacerbation (principal); I73.9 Peripheral vascular disease, unspecified; I50.9 Heart failure, unspecified; F32.9 Major depressive disorder, single episode, unspecified; Z88.0 Allergy status to penicillin; Z88.1 Allergy status to other antibiotic agents; Z88.5 Allergy status to narcotic agent; Z88.8 Allergy status to other drugs, medicaments and biological substances; Z87.891 Personal history of nicotine dependence; Z79.51 Long term (current) use of inhaled steroids; Z79.899 Other long term (current) drug therapy
CPT/HCPCS: 36415; 71275; 80048; 80053; 83880; 84484; 85025; 85379; 93005; 94640; 96365; 96366; 96375; 96376; A9270-GY; G0378; G0379; J0456; J2930; J7050; J7620-GY; Q9967

== ENCOUNTER 2019-03-21 01:33 | Emergency (ER) | payer MEDICARE, BC ==
--- NOTE | 2019-03-21 01:55 | EDM.PDOC ---
ED HPI GENERAL MEDICAL PROBLEM - General Stated Complaint: HEAD LACERATION Time Seen by Provider: 03/21/19 01:40 Source of Information: Reports: Patient History Limitations: Reports: No Limitations - History of Present Illness INITIAL COMMENTS - FREE TEXT/NARRATIVE: 88-year-old male who reports that he apparently rolled out of bed at approximately midnight and fell on his right side. Apparently he hit the oxygen machine with his right lateral orbital area causing a skin tear to this area and also hit his right elbow causing a skin tear to that area as well. He denies any loss of consciousness. He denies any pain in the area at this point. He would rate the pain as a 0/10. There is some pain in the area of the skin on the elbow outpatient but he reports that it is mild and it is stinging. He denies any neck pain or head pain. He denies any chest pain. He denies any hip pain. He presents to the emergency department via ambulance. It was reported of a small pool of blood on the floor. The patient lives in the [facility] which is an assisted living facility and he lives independently. There are no other associated signs or symptoms. There are no other modifying factors. Onset: Today (The patient reports around midnight) Duration: Constant Location: Reports: Face, Upper Extremity, Right (Right elbow) Quality: Reports: Other (Mild stinging around cuts with palpation) Severity: Mild Improves with: Reports: None Worsens with: Reports: Other (Palpation) Context: Reports: Trauma (As above) Associated Symptoms: Reports: No Other Symptoms Treatments SECURITY MANAGER: Reports: Other (see below) (Nothing) - Related Data Allergies Allergy/AdvReac Type Severity Reaction Status Date / Time cephalexin monohydrate Allergy Vomiting Verified 02/08/18 21:39 [From Keflex] morphine Allergy Confusion Verified 02/08/18 21:39 amoxicillin trihydrate AdvReac Nausea and Verified 02/08/18 21:39 [From Augmentin] Vomiting codeine AdvReac Nausea and Verified 02/08/18 21:39 Vomiting hydrocodone AdvReac Nausea and Verified 02/08/18 21:39 Vomiting potassium clavulanate AdvReac Nausea and Verified 02/08/18 21:39 [From Augmentin] Vomiting simvastatin AdvReac Muscle Verified 02/08/18 21:39 Aches Home Meds: Home Meds Budesonide/Formoterol [Symbicort 80-4.5 MCG] 2 puff INH BID 02/24/18 [History] Dextran 70/Hypromellose [Artificial Tears] 1 - 2 drop EYEBOTH TID 02/24/18 [ History] Finasteride 5 mg PO DAILY 02/24/18 [History] Naproxen Sodium [Aleve] 440 mg PO BID PRN 02/24/18 [History] Sertraline [Zoloft] 200 mg PO DAILY 02/24/18 [History] Tamsulosin [Flomax] 0.4 mg PO DAILY 02/24/18 [History] Temazepam 15 mg PO BEDTIME 02/24/18 [History] Albuterol/Ipratropium [DuoNeb 3.0-0.5 MG/3 ML] 3 ml IH Q4H PRN 03/02/19 [History ] Albuterol/Ipratropium [DuoNeb 3.0-0.5 MG/3 ML] 3 ml IH TID 03/02/19 [History] Furosemide 40 mg PO DAILY 03/02/19 [History] Tiotropium [place] [Spiriva Respimat] 2 puff IH DAILY 03/02/19 [History] predniSONE 20 mg PO BID #10 tab 03/04/19 [Rx] Past Medical History HEENT History: Reports: Cataract, Hard of Hearing, Impaired Vision Cardiovascular History: Reports: PVD Respiratory History: Reports: Bronchitis, Recurrent, COPD, Pulmonary Fibrosis ( On oxygen chronically 07/04) Neurological History: Reports: CVA - Infectious Disease History Infectious Disease History: Reports: None - Past Surgical History HEENT Surgical History: Reports: Cataract Surgery GI Surgical History: Reports: Hernia, Inguinal (Right) Neurological Surgical History: Reports: Lumbar Spine Musculoskeletal Surgical History: 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 ) Social & Family History - Tobacco Use Smoking Status *Q: Former Smoker (Quit 4-5 years ago but was a heavy smoker prior to that) - Caffeine Use Caffeine Use: Reports: Coffee - Alcohol Use Alcohol Use History: Yes Alcohol Use Frequency: Rarely - Living Situation & Occupation Living situation: Reports: Occupation: Retired Social History Comment: Lives in [facility]. ED ROS GENERAL - Review of Systems Review Of Systems: See Below Constitutional: Reports: No Symptoms HEENT: Reports: No Symptoms Respiratory: Reports: Shortness of Breath (Chronic and unchanged), Cough ( Chronic and unchanged) Cardiovascular: Reports: No Symptoms GI/Abdominal: Reports: No Symptoms : Reports: No Symptoms Musculoskeletal: Reports: No Symptoms Skin: Reports: Wound (Skin tears to right lateral orbital area and to right elbow.) Neurological: Reports: No Symptoms Hematologic/Lymphatic: Reports: Other (On no chronic anticoagulation.) Immunologic: Reports: Other (Greater than 5 years since his last tetanus immunization) ED EXAM, HEAD INJURY - Physical Exam Exam: See Below Exam Limited By: No Limitations General Appearance: Alert, WD/WN, No Apparent Distress Head: Facial Ecchymosis (No crepitus or bony deformity palpated.), Facial Lacerations (Skin tear over her right lateral orbital area.). No: Facial Tenderness Nexus Criteria: No: Posterior, Midline Cervical Tenderness, Evidence of Intoxication, Altered Level of Consciousness, Focal Neurological Deficit, Painful Distraction Injuries Eyes: Bilateral Eye: EOMI, Normal Inspection, PERRL Ears: Normal External Exam Nose: Normal Inspection (And face is stable), Normal Mucousa, No Blood Throat/Mouth: Normal Inspection, Normal Oropharynx, Normal Voice, No Airway Compromise Neck: Non-Tender, Normal Inspection. No: Stiff Neck, Tender Midline Respiratory: No Respiratory Distress, No Accessory Muscle Use, Rhonchi, Wheezing Cardiovascular: Normal Peripheral Pulses, Regular Rate, Rhythm, No JVD GI/Abdominal Exam: Normal Bowel Sounds, Soft, Non-Tender, No Mass, Pelvis Stable Back Exam: Normal Inspection Extremities: Normal Range of Motion, Non-Tender, No Pedal Edema, Normal Capillary Refill, Other (Skin tear over right olecranon area. No crepitus. No bony deformity. No effusion.) Neurologic: No Motor/Sensory Deficits, Alert, Oriented x 3 Skin: Normal Color, Warm/Dry, Ecchymosis (And skin tears over the right elbow and right lateral orbital area) Course - Vital Signs Last Recorded V/S: Last Vital Signs Temp 36.8 C 03/21/19 01:58 Pulse 87 03/21/19 01:58 Resp 28 H 03/21/19 01:58 BP 138/64 03/21/19 01:58 Pulse Ox 100 03/21/19 01:58 - Orders/Labs/Meds Orders: Active Orders 24 hr Category Date Time Status Vaccines to be Administered [RC] PER UNIT ROUTINE Care 03/21/19 01:58 Active Wound Care [RC] ONETIME Care 03/21/19 03:00 Active Cervical Spine wo Cont [CT] Stat Exams 03/21/19 01:57 Taken Head wo Cont [CT] Stat Exams 03/21/19 01:57 Taken Meds: Medications Discontinued Medications Generic Name Dose Route Start Last Admin Trade Name Kasia PRN Reason Stop Dose Admin Diphtheria/Tetanus/Acell Pertussis 0.5 ml 03/21/19 01:58 03/21/19 02:47 Adacel IM 03/21/19 01:59 0.5 ml .ONCE ONE Administration - Radiology Interpretation Free Text/Narrative:: CT scan of head shows no fracture or bleed per the radiologist. CT scan of cervical spine shows no fracture per the radiologist. - Re-Assessments/Exams Free Text/Narrative Re-Assessment/Exam: 03/21/19 03:00: Patient is resting comfortably. He is easily awakened and is appropriately responsive to me. He has been vitally and neurologically stable while here. His skin tears on his right lateral orbital area and his right elbow were cleaned and dressed by the nursing staff. Patient tolerated this well and without any complications. The patient's CT scans of his head and neck were without bleeding or fracture. The patient will be discharged back to his apartment at [facility] via taxicab. We will provide an oxygen bottle for the taxicab so the patient will be on oxygen his entire trip and will be able to get back on to his home oxygen when he arrives at his apartment. Departure - Departure Time of Disposition: 03:21 Disposition: Home, Self-Care 01 Condition: Fair (Stable) Clinical Impression: Skin tear, Fall from bed, initial encounter Head contusion Qualifiers: Encounter type: initial encounter Contusion of head detail: periocular area Laterality: right Qualified Code(s): S00.11XA - Contusion of right eyelid and periocular area, initial encounter Skin tear of elbow without complication Qualifiers: Encounter type: initial encounter Laterality: right Qualified Code(s): S51.011A - Laceration without foreign body of right elbow, initial encounter Contusion of right elbow Qualifiers: Encounter type: initial encounter Qualified Code(s): S50.01XA - Contusion of right elbow, initial encounter - Discharge Information Instructions: Skin Tear Care, [id number], Contusion, [id number], Head Injury, Adult, [id number] Referrals: Rc Felipe MD [Primary Care Provider] - Forms: ED Department Discharge Additional Instructions: The CT scans of your head and neck showed no fractures or bleeding. The wounds on your right face and right elbow are skin tears. You were given a Tdap immunization to bring her tetanus immunization status up-to-date. You may take Tylenol as needed for pain. Back to the emergency department for vomiting, worsening pain, signs of infection or any other concerning sign or symptom. - My Orders Last 24 Hours: My Active Orders 03/21/19 01:57 Cervical Spine wo Cont [CT] Stat Head wo Cont [CT] Stat 03/21/19 01:58 Vaccines to be Administered [RC] PER UNIT ROUTINE 03/21/19 03:00 Wound Care [RC] ONETIME - Assessment/Plan Last 24 Hours: My Active Orders 03/21/19 01:57 Cervical Spine wo Cont [CT] Stat Head wo Cont [CT] Stat 03/21/19 01:58 Vaccines to be Administered [RC] PER UNIT ROUTINE 03/21/19 03:00 Wound Care [RC] ONETIME
[2019-03-21] MEDS ORDERED: Diphtheria,Pertussis(Acell),Tetanus Vaccine 0.5 ML SDV IM ONE (01:58)
[2019-03-21 02:09] VITALS: BP 138/64; PULSE 87
== END 2019-03-21 03:35 | disposition home or self-care (01) ==
LOC: FB.ED 01:33
DX: S01.111A Laceration without foreign body of right eyelid and periocular area, initial encounter (principal); S51.011A Laceration without foreign body of right elbow, initial encounter; Z23 Encounter for immunization; W06.XXXA Fall from bed, initial encounter; Z88.1 Allergy status to other antibiotic agents; Z88.5 Allergy status to narcotic agent; Z79.899 Other long term (current) drug therapy; Z86.73 Personal history of transient ischemic attack (TIA), and cerebral infarction without residual deficits; Z87.891 Personal history of nicotine dependence
CPT/HCPCS: 70450; 72125; 90471; 90715; 99283; 99283-25

== ENCOUNTER 2019-03-24 16:38 | Inpatient (IN) | payer MEDICARE, BC ==
[2019-03-24] MEDS ORDERED: Albuterol/Ipratropium 3.0-0.5 MG/3 ML Neb Soln NEB ONE (17:44)
[2019-03-24] MEDS: Sodium Chloride 0.9% 1,000 ML IV SCH (18:30)
[2019-03-24] MEDS ORDERED: methylPREDNISolone Sodium Succinate 125 MG/2 ML SDV IVPUSH ONE (18:56)
[2019-03-24] MEDS ORDERED: Albuterol/Ipratropium 3.0-0.5 MG/3 ML Neb Soln NEB PRN (19:55)
--- NOTE | 2019-03-24 20:07 | EDM.PDOC ---
ED HPI GENERAL MEDICAL PROBLEM - General Chief Complaint: Respiratory Problem Stated Complaint: WEAK, CHF SOB Time Seen by Provider: 03/24/19 17:15 Source of Information: Reports: Patient, Family History Limitations: Reports: No Limitations - History of Present Illness INITIAL COMMENTS - FREE TEXT/NARRATIVE: patient sent over from clinic with concern for increased falls at home, shortness of breath and increased cough and weakness. He was admitted to this hospital on March 02 with a COPD exacerbation, and then seen in the ER on 03/21 due to a fall and needing stitches in his head. Son reports he has fallen 3 times since then and seems to be very weak. Patient himself has no complaints for me, denying chest pain, admitting to slightly increased cough and states his breathing is a little hard sometimes. He completely denies any other symptoms. Son reports the patient lives alone in an apartment and that it has been very hot day lately. He installed an air conditioning unit that the patient tends to turn off. He is also quite certain that the patient is not taking his medications regularly, nor using his inhalers very often. yesterday he found that the patient had been using a portable oxygen and had completely run out. He is not certain his father is able to live on his own any longer at this point - Related Data Allergies Allergy/AdvReac Type Severity Reaction Status Date / Time cephalexin monohydrate Allergy Vomiting Verified 03/24/19 19:42 [From Keflex] morphine Allergy Confusion Verified 03/24/19 19:42 amoxicillin trihydrate AdvReac Nausea and Verified 03/24/19 19:42 [From Augmentin] Vomiting codeine AdvReac Nausea and Verified 03/24/19 19:42 Vomiting hydrocodone AdvReac Nausea and Verified 03/24/19 19:42 Vomiting potassium clavulanate AdvReac Nausea and Verified 03/24/19 19:42 [From Augmentin] Vomiting simvastatin AdvReac Muscle Verified 03/24/19 19:42 Aches Home Meds: Home Meds Budesonide/Formoterol [Symbicort 80-4.5 MCG] 2 puff INH BID 02/24/18 [History] Dextran 70/Hypromellose [Artificial Tears] 1 - 2 drop EYEBOTH TID 02/24/18 [ History] Finasteride 5 mg PO DAILY 02/24/18 [History] Naproxen Sodium [Aleve] 440 mg PO BID PRN 02/24/18 [History] Sertraline [Zoloft] 200 mg PO DAILY 02/24/18 [History] Tamsulosin [Flomax] 0.4 mg PO DAILY 02/24/18 [History] Temazepam 15 mg PO BEDTIME 02/24/18 [History] Albuterol/Ipratropium [DuoNeb 3.0-0.5 MG/3 ML] 3 ml IH Q4H PRN 03/02/19 [History ] Albuterol/Ipratropium [DuoNeb 3.0-0.5 MG/3 ML] 3 ml IH TID 03/02/19 [History] Furosemide 40 mg PO DAILY 03/02/19 [History] Tiotropium [place] [Spiriva Respimat] 2 puff IH DAILY 03/02/19 [History] predniSONE 20 mg PO BID #10 tab 03/04/19 [Rx] Past Medical History HEENT History: Reports: Cataract, Hard of Hearing, Impaired Vision Cardiovascular History: Reports: PVD Respiratory History: Reports: Bronchitis, Recurrent, COPD, Pulmonary Fibrosis ( On oxygen chronically 07/04) Genitourinary History: Reports: Other (See Below) Other Genitourinary History: has to get up a lot Neurological History: Reports: CVA - Infectious Disease History Infectious Disease History: Reports: None - Past Surgical History HEENT Surgical History: Reports: Cataract Surgery GI Surgical History: Reports: Hernia, Inguinal (Right) Neurological Surgical History: Reports: Lumbar Spine Musculoskeletal Surgical History: 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 ) Social & Family History - Family History Family Medical History: Noncontributory - Tobacco Use Smoking Status *Q: Never Smoker - Caffeine Use Caffeine Use: Reports: Coffee Other Caffeine Use: 2 cups a day - Alcohol Use Alcohol Use History: Yes - Recreational Drug Use Recreational Drug Use: No - Living Situation & Occupation Living situation: Reports: Occupation: Retired Social History Comment: lives at [facility] GENERAL - Review of Systems Review Of Systems: See Below Constitutional: Reports: Malaise, Weakness, Fatigue, Diaphoresis. Denies: Fever , Chills HEENT: Reports: No Symptoms Respiratory: Reports: Shortness of Breath, Wheezing, Cough. Denies: Pleuritic Chest Pain Cardiovascular: Denies: Chest Pain, Edema, Lightheadedness, Palpitations Endocrine: Reports: No Symptoms GI/Abdominal: Reports: No Symptoms : Reports: No Symptoms Musculoskeletal: Reports: No Symptoms Skin: Reports: No Symptoms Neurological: Denies: Numbness, Tingling, Weakness Psychiatric: Reports: No Symptoms Hematologic/Lymphatic: Reports: No Symptoms ED EXAM, GENERAL - Physical Exam Exam: See Below Free Text/Narrative:: general: Alert, very pleasant in no acute distress, hard of hearing. Head is atraumatic. Neck is supple, there is no cervical lymph adenopathy. ENT: Slight nasal congestion is noted, no pharyngeal erythema. Lungs have diffuse wheezing throughout with no obvious crackles, he is on 2 L oxygen nasal cannula and his breathing is very minimally labored. Heart is slightly tachycardic, I do not hear murmur. Abdomen positive bowel sounds, soft nondistended and nontender with no rebound or guarding. Peripheral pulses +2 in both the upper and lower extremities, no lower extremity edema. Neuro: Equal strength in both upper and lower extremities bilaterally, facial muscles symmetric, pupils equal and reactive. Skin shows no obvious signs of rash or lesions. Clubbing is noted of the fingernails. Course - Vital Signs Text/Narrative:: call received from clinic for patient had presented earlier today, has reported increased shortness of breath at rest, cough, weakness and 3 falls since being seen in here on Symptoms consistent with worsening COPD exacerbation, although son is not certain that he takes his meds all the time. At this point appears comfortable on 2 L of oxygen, diffuse wheezing throughout his chest, also suspect he is slightly dehydrated. Will get labs, chest x-ray and start IV fluids. Nebulizer and Solu-Medrol ordered as well. vitals relatively stable, slightly tachycardic but had albuterol 2 hours prior to arrival Last Recorded V/S: Last Vital Signs Temp 36.8 C 03/24/19 16:40 Pulse 88 03/24/19 19:55 Resp 20 03/24/19 19:55 BP 149/68 H 03/24/19 19:55 Pulse Ox 97 03/24/19 19:55 - Orders/Labs/Meds Orders: Active Orders 24 hr Category Date Time Status RT Aerosol Therapy [RC] ASDIRECTED Care 03/24/19 17:44 Active CULTURE BLOOD [BC] Stat Lab 03/24/19 17:45 Received Sodium Chloride 0.9% [Normal Saline] 1,000 ml Med 03/24/19 17:45 Active IV ASDIRECTED Medication Orders Albuterol/Ipratropium (Duoneb 3.0-0.5 Mg/3 Ml) 3 ml NEB Q2H PRN PRN Reason: Wheezing Cefazolin Sodium (Ancef) 1 gm IVPUSH Q8H MATTHEW Sodium Chloride (Normal Saline) 1,000 mls @ 150 mls/hr IV ASDIRECTED MATTHEW Last Admin: 03/24/19 18:30 Dose: 150 mls/hr Methylprednisolone Sodium Succinate (Solu-Medrol) 40 mg IVPUSH DAILY [facility] Labs: Laboratory Tests 03/24/19 03/24/19 03/24/19 Range/Units 17:45 17:45 17:45 WBC 7.7 (4.5-12.0) X10-3/uL RBC 4.00 L (4.30-5.75) x10(6)uL Hgb 12.1 L (13.5-17.8) g/dL Hct 36.2 (30.0-51.3) % MCV 90.5 (80-96) fL MCH 30.2 (27.7-33.6) pg MCHC 33.4 (32.2-35.4) g/dL RDW 15.0 (11.5-15.5) % Plt Count 306 (125-369) X10(3)uL MPV 8.0 (7.4-10.4) fL Neut % (Auto) 84.5 H (46-82) % Lymph % (Auto) 6.8 L (13-37) % [place] % (Auto) 4.4 (4-12) % Eos % (Auto) 3 (1.0-5.0) % Baso % (Auto) 2 (0-2) % Neut # (Auto) 6.6 (1.6-8.3) # Lymph # (Auto) 0.5 L (0.6-5.0) # [place] # (Auto) 0.3 (0.0-1.3) # Eos # (Auto) 0.2 (0.0-0.8) # Baso # (Auto) 0.1 (0.0-0.2) # Sodium 138 (135-145) mmol/L Potassium 4.2 (3.5-5.3) mmol/L Chloride 102 (100-110) mmol/L Carbon Dioxide 27 (21-32) mmol/L BUN 21 H D (7-18) mg/dL Creatinine 1.4 H (0.70-1.30) mg/dL Est Cr Clr Drug Dosing TNP Estimated GFR (MDRD) 48 L (>60) BUN/Creatinine Ratio 15.0 (9-20) Glucose 123 H (80-116) mg/dL Lactic Acid 1.6 (0.4-2.2) mmol/L Calcium 9.1 (8.6-10.2) mg/dL C-Reactive Protein (0.5-0.9) mg/dL 03/24/19 Range/Units 17:45 WBC (4.5-12.0) X10-3/uL RBC (4.30-5.75) x10(6)uL Hgb (13.5-17.8) g/dL Hct (30.0-51.3) % MCV (80-96) fL MCH (27.7-33.6) pg MCHC (32.2-35.4) g/dL RDW (11.5-15.5) % Plt Count (125-369) X10(3)uL MPV (7.4-10.4) fL Neut % (Auto) (46-82) % Lymph % (Auto) (13-37) % [place] % (Auto) (4-12) % Eos % (Auto) (1.0-5.0) % Baso % (Auto) (0-2) % Neut # (Auto) (1.6-8.3) # Lymph # (Auto) (0.6-5.0) # [place] # (Auto) (0.0-1.3) # Eos # (Auto) (0.0-0.8) # Baso # (Auto) (0.0-0.2) # Sodium (135-145) mmol/L Potassium (3.5-5.3) mmol/L Chloride (100-110) mmol/L Carbon Dioxide (21-32) mmol/L BUN (7-18) mg/dL Creatinine (0.70-1.30) mg/dL Est Cr Clr Drug Dosing Estimated GFR (MDRD) (>60) BUN/Creatinine Ratio (9-20) Glucose (80-116) mg/dL Lactic Acid (0.4-2.2) mmol/L Calcium (8.6-10.2) mg/dL C-Reactive Protein 3.0 H* (0.5-0.9) mg/dL Meds: Medications Generic Name Dose Route Start Last Admin Trade Name Freq PRN Reason Stop Dose Admin Albuterol/Ipratropium 3 ml 03/24/19 19:55 Duoneb 3.0-0.5 Mg/3 Ml NEB Q2H PRN Wheezing Cefazolin Sodium 1 gm 03/24/19 21:00 Ancef IVPUSH Q8H MATTHEW Sodium Chloride 1,000 mls @ 150 mls/hr 03/24/19 17:45 03/24/19 18:30 Normal Saline IV 150 mls/hr ASDIRECTED MATTHEW Administration Methylprednisolone Sodium Succinate 40 mg 03/25/19 09:00 Solu-Medrol IVPUSH DAILY MATTHEW Discontinued Medications Generic Name Dose Route Start Last Admin Trade Name Freq PRN Reason Stop Dose Admin Albuterol/Ipratropium 3 ml 03/24/19 17:44 03/24/19 18:20 Duoneb 3.0-0.5 Mg/3 Ml NEB 03/24/19 17:45 3 ml ONETIME ONE Administration Methylprednisolone Sodium Succinate 125 mg 03/24/19 18:56 03/24/19 19:16 Solu-Medrol IVPUSH 03/24/19 18:57 125 mg ONETIME ONE Administration - Re-Assessments/Exams Free Text/Narrative Re-Assessment/Exam: 03/24/19 labs reviewed, normal white blood cell count but slightly elevated CRP. Chest x-ray appears clear. Slightly dehydrated based on creatinine and BUNs. Patient noted to have urinated twice in the last hour, will check urinalysis Free Text/Narrative Re-Assessment/Exam: 03/24/19 admit to floor Solu-Medrol 125 mg given tonight, ordered for 40 mg daily starting tomorrow a.m. and further management per hospitalist nebulizers ordered every 2 hours when necessary Will resume home inhalers I think low likelihood of pneumonia given clear chest x-ray and normal white count, lungs diffuse wheezing but no crackles, oxygen at baseline Urinalysis appears to be infected, will give Cefazolin IV q8hrs and culture urine. this could be contributing to falls in an elderly gentleman. no signs or symptoms of pyelonephritis Departure - Departure Time of Disposition: 20:00 Disposition: Admitted As Inpatient 68 Condition: Fair Clinical Impression: COPD, Moderate chronic obstructive pulmonary disease, Fall from chair or bed, UTI (urinary tract infection) - Discharge Information *PRESCRIPTION DRUG MONITORING PROGRAM REVIEWED*: Not Applicable *COPY OF PRESCRIPTION DRUG MONITORING REPORT IN PATIENT BRIANNA: Not Applicable - My Orders Last 24 Hours: My Active Orders 03/24/19 17:44 RT Aerosol Therapy [RC] ASDIRECTED 03/24/19 17:45 CULTURE BLOOD [BC] Stat Sodium Chloride 0.9% [Normal Saline] 1,000 ml IV ASDIRECTED - Assessment/Plan Last 24 Hours: My Active Orders 03/24/19 17:44 RT Aerosol Therapy [RC] ASDIRECTED 03/24/19 17:45 CULTURE BLOOD [BC] Stat Sodium Chloride 0.9% [Normal Saline] 1,000 ml IV ASDIRECTED
[2019-03-24] MEDS ORDERED: ceFAZolin 1 GM Vial IVPUSH SCH (21:00)
[2019-03-24] MEDS ORDERED: ceFAZolin 1 GM Vial ONE (21:23)
[2019-03-24] MEDS: ceFAZolin 1 GM in Sodium Chloride 0.9% 50 ML IV SCH (22:13)
[2019-03-25] MEDS: Sodium Chloride 0.9% 1,000 ML IV SCH ×2 (01:01→08:59)
[2019-03-25] MEDS: ceFAZolin 1 GM Vial ONE ×2 (05:00)
[2019-03-25] MEDS: ceFAZolin 1 GM in Sodium Chloride 0.9% 50 ML IV SCH (05:00)
[2019-03-25] MEDS ORDERED: cefTRIAXone 1 GM in Sodium Chloride 0.9% 50 ML IV SCH (09:45)
--- NOTE | 2019-03-25 09:51 | PCM.HP ---
H&P History of Present Illness - General Date of Service: 03/25/19 Admit Problem/Dx: Admission Diagnosis/Problem Admission Diagnosis/Problem COPD, Severe chronic obstructive pulmonary disease Source of Information: Patient, Old Records History Limitations: Reports: Other (Hard of hearing) - History of Present Illness Initial Comments - Free Text/Narative: This is an 88-year-old male patient is a resident of [facility] with a long -standing history of COPD. He is having frequent falls and worsening shortness of breath. He says he has a cough with white cabral sputum. He does have a cough is never productive. He denies fevers, chills. States his low nasal congestion or sore throat. He was seen in the clinic by [facility] nurse practitioner said to the ER for possible admission. He denies chest pain, wheezing, fevers, chills. - Related Data Allergies/Adverse Reactions: Allergies Allergy/AdvReac Type Severity Reaction Status Date / Time cephalexin monohydrate Allergy Vomiting Verified 03/24/19 19:42 [From Keflex] morphine Allergy Confusion Verified 03/24/19 19:42 amoxicillin trihydrate AdvReac Nausea and Verified 03/24/19 19:42 [From Augmentin] Vomiting codeine AdvReac Nausea and Verified 03/24/19 19:42 Vomiting hydrocodone AdvReac Nausea and Verified 03/24/19 19:42 Vomiting potassium clavulanate AdvReac Nausea and Verified 03/24/19 19:42 [From Augmentin] Vomiting simvastatin AdvReac Muscle Verified 03/24/19 19:42 Aches Home Medications: Home Meds Budesonide/Formoterol [Symbicort 80-4.5 MCG] 2 puff INH BID 02/24/18 [History] Dextran 70/Hypromellose [Artificial Tears] 1 - 2 drop EYEBOTH TID 02/24/18 [ History] Finasteride 5 mg PO DAILY 02/24/18 [History] Naproxen Sodium [Aleve] 440 mg PO BID PRN 02/24/18 [History] Sertraline [Zoloft] 200 mg PO DAILY 02/24/18 [History] Tamsulosin [Flomax] 0.4 mg PO DAILY 02/24/18 [History] Temazepam 15 mg PO BEDTIME 02/24/18 [History] Albuterol/Ipratropium [DuoNeb 3.0-0.5 MG/3 ML] 3 ml IH Q4H PRN 03/02/19 [History ] Albuterol/Ipratropium [DuoNeb 3.0-0.5 MG/3 ML] 3 ml IH TID 03/02/19 [History] Furosemide 40 mg PO DAILY 03/02/19 [History] Tiotropium [place] [Spiriva Respimat] 2 puff IH DAILY 03/02/19 [History] Past Medical History HEENT History: Reports: Cataract, Hard of Hearing, Impaired Vision Cardiovascular History: Reports: PVD Respiratory History: Reports: Bronchitis, Recurrent, COPD, Pulmonary Fibrosis ( On oxygen chronically 07/04) Genitourinary History: Reports: Other (See Below) Other Genitourinary History: has to get up a lot Neurological History: Reports: CVA - Infectious Disease History Infectious Disease History: Reports: None - Past Surgical History HEENT Surgical History: Reports: Cataract Surgery GI Surgical History: Reports: Hernia, Inguinal (Right) Neurological Surgical History: Reports: Lumbar Spine Musculoskeletal Surgical History: 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 ) Social & Family History - Family History Family Medical History: Noncontributory - Tobacco Use Smoking Status *Q: Never Smoker Used Tobacco, but Quit: Yes Month/Year Tobacco Last Used: 2008 - Caffeine Use Caffeine Use: Reports: Coffee Other Caffeine Use: 2 cups a day - Recreational Drug Use Recreational Drug Use: No - Living Situation & Occupation Living situation: Reports: Occupation: Retired H&P Review of Systems - Review of Systems: Review Of Systems: See Below General: Reports: Weakness, Other (Frequent falls) HEENT: Reports: Rhinitis Pulmonary: Reports: Shortness of Breath, Cough, Sputum. Denies: Wheezing, Pleuritic Chest Pain, Hemoptysis Cardiovascular: Reports: No Symptoms Gastrointestinal: Reports: Constipation Genitourinary: Reports: No Symptoms Musculoskeletal: Reports: No Symptoms Skin: Reports: Burn(s) Psychiatric: Reports: No Symptoms Neurological: Reports: No Symptoms Hematologic/Lymphatic: Reports: No Symptoms Immunologic: Reports: No Symptoms Exam - Exam Exam: See Below - Vital Signs Vital Signs: Last Vital Signs Temp 98.5 F 03/25/19 04:00 Pulse 74 03/25/19 04:00 Resp 20 03/25/19 04:00 BP 100/54 L 03/25/19 04:00 Pulse Ox 95 03/25/19 04:00 Weight: 171 lb 12.8 oz - Exam General: Alert, Oriented, Cooperative HEENT: Conjunctiva Clear, Posterior Pharynx Clear, TMs Clear, Other (Hearing decreased) Neck: Supple, Trachea Midline. No: Lymphadenopathy, Carotid Bruit, JVD Lungs: Normal Respiratory Effort, Wheezing (Expiratory prolonged expiratory phase per) Cardiovascular: Regular Rate, Regular Rhythm. No: Systolic Murmur GI/Abdominal Exam: Normal Bowel Sounds, Soft, Non-Tender, No Distention Back Exam: Normal Inspection Extremities: Normal Inspection, Normal Range of Motion, Non-Tender, No Pedal Edema Skin: Warm, Intact Neurological: Normal Speech, Normal Tone Neuro Extensive - Mental Status: Alert, Oriented x3, Normal Mood/Affect, Normal Cognition Psychiatric: Alert, Normal Affect, Normal Mood - Patient Data Lab Results Last 24 hrs: Laboratory Results - last 24 hr 03/24/19 03/24/19 03/24/19 Range/Units 17:45 17:45 17:45 WBC 7.7 (4.5-12.0) X10-3/uL RBC 4.00 L (4.30-5.75) x10(6)uL Hgb 12.1 L (13.5-17.8) g/dL Hct 36.2 (30.0-51.3) % MCV 90.5 (80-96) fL MCH 30.2 (27.7-33.6) pg MCHC 33.4 (32.2-35.4) g/dL RDW 15.0 (11.5-15.5) % Plt Count 306 (125-369) X10(3)uL MPV 8.0 (7.4-10.4) fL Neut % (Auto) 84.5 H (46-82) % Lymph % (Auto) 6.8 L (13-37) % [place] % (Auto) 4.4 (4-12) % Eos % (Auto) 3 (1.0-5.0) % Baso % (Auto) 2 (0-2) % Neut # (Auto) 6.6 (1.6-8.3) # Lymph # (Auto) 0.5 L (0.6-5.0) # [place] # (Auto) 0.3 (0.0-1.3) # Eos # (Auto) 0.2 (0.0-0.8) # Baso # (Auto) 0.1 (0.0-0.2) # Sodium 138 (135-145) mmol/L Potassium 4.2 (3.5-5.3) mmol/L Chloride 102 (100-110) mmol/L Carbon Dioxide 27 (21-32) mmol/L BUN 21 H D (7-18) mg/dL Creatinine 1.4 H (0.70-1.30) mg/dL Est Cr Clr Drug Dosing TNP Estimated GFR (MDRD) 48 L (>60) BUN/Creatinine Ratio 15.0 (9-20) Glucose 123 H (80-116) mg/dL Lactic Acid 1.6 (0.4-2.2) mmol/L Calcium 9.1 (8.6-10.2) mg/dL C-Reactive Protein (0.5-0.9) mg/dL Urine Color (YELLOW) Urine Appearance (CLEAR) Urine pH (5.0-6.5) Ur Specific [place] (1.010-1.025) Urine Protein (NEGATIVE) mg/dL Urine Glucose (UA) (NORMAL) mg/dL Urine Ketones (NEGATIVE) mg/dL Urine Occult Blood (NEGATIVE) Urine Nitrite (NEGATIVE) Urine Bilirubin (NEGATIVE) Urine Urobilinogen (NEGATIVE) mg/dL Ur Leukocyte Esterase (NEGATIVE) Urine RBC (0-5) Urine WBC (0-5) Ur Squamous Epith Cells (NS,R,O) Urine Bacteria (NS) Hyaline Casts (NS) Urine Mucus (NS) 03/24/19 03/24/19 Range/Units 17:45 19:56 WBC (4.5-12.0) X10-3/uL RBC (4.30-5.75) x10(6)uL Hgb (13.5-17.8) g/dL Hct (30.0-51.3) % MCV (80-96) fL MCH (27.7-33.6) pg MCHC (32.2-35.4) g/dL RDW (11.5-15.5) % Plt Count (125-369) X10(3)uL MPV (7.4-10.4) fL Neut % (Auto) (46-82) % Lymph % (Auto) (13-37) % [place] % (Auto) (4-12) % Eos % (Auto) (1.0-5.0) % Baso % (Auto) (0-2) % Neut # (Auto) (1.6-8.3) # Lymph # (Auto) (0.6-5.0) # [place] # (Auto) (0.0-1.3) # Eos # (Auto) (0.0-0.8) # Baso # (Auto) (0.0-0.2) # Sodium (135-145) mmol/L Potassium (3.5-5.3) mmol/L Chloride (100-110) mmol/L Carbon Dioxide (21-32) mmol/L BUN (7-18) mg/dL Creatinine (0.70-1.30) mg/dL Est Cr Clr Drug Dosing Estimated GFR (MDRD) (>60) BUN/Creatinine Ratio (9-20) Glucose (80-116) mg/dL Lactic Acid (0.4-2.2) mmol/L Calcium (8.6-10.2) mg/dL C-Reactive Protein 3.0 H* (0.5-0.9) mg/dL Urine Color Yellow (YELLOW) Urine Appearance Clear (CLEAR) Urine pH 5.0 (5.0-6.5) Ur Specific [place] 1.015 (1.010-1.025) Urine Protein Negative (NEGATIVE) mg/dL Urine Glucose (UA) Normal (NORMAL) mg/dL Urine Ketones Negative (NEGATIVE) mg/dL Urine Occult Blood Negative (NEGATIVE) Urine Nitrite Negative (NEGATIVE) Urine Bilirubin Negative (NEGATIVE) Urine Urobilinogen Normal (NEGATIVE) mg/dL Ur Leukocyte Esterase Small H (NEGATIVE) Urine RBC 0-5 (0-5) Urine WBC 0-5 (0-5) Ur Squamous Epith Cells Few H (NS,R,O) Urine Bacteria Few H (NS) Hyaline Casts Few H (NS) Urine Mucus Moderate H (NS) Result Diagrams: 03/24/19 17:45 03/24/19 17:45 - Problem List (1) Fall SNOMED Code(s): 6831890, 426259812 ICD Code: W19.XXXA - UNSPECIFIED FALL, INITIAL ENCOUNTER Status: Acute Current Visit: Yes (2) Palliative care status SNOMED Code(s): 508018733 ICD Code: Z51.5 - ENCOUNTER FOR PALLIATIVE CARE Status: Acute Current Visit: Yes (3) COPD, Moderate chronic obstructive pulmonary disease SNOMED Code(s): 378083153 ICD Code: J44.9 - CHRONIC OBSTRUCTIVE PULMONARY DISEASE, UNSPECIFIED Status : Acute Priority: Medium Current Visit: Yes Onset Date: 11/12/14 Problem Details: continue present therapy Problem List Initiated/Reviewed/Updated: Yes Orders Last 24hrs: Active Orders 24 hr Category Date Time Status Patient Status [ADT] Routine ADT 03/24/19 19:55 Active Oxygen Therapy [RC] PRN Care 03/24/19 19:55 Active RT Aerosol Therapy [RC] ASDIRECTED Care 03/24/19 17:44 Active Up With Assistance [RC] ASDIRECTED Care 03/24/19 19:55 Active VTE/DVT Education [RC] Per Unit Routine Care 03/24/19 19:55 Active Vital Signs [RC] 00,04,08,12,16,20 Care 03/24/19 19:55 Active Consult to Occupational Therapy [OT Evaluation and Cons 03/25/19 09:31 Active Treatment] [CONS] Routine Consult to Physical Therapy [PT Evaluation and Cons 03/25/19 09:31 Active Treatment] [CONS] Routine Regular Diet [DIET] Diet 03/24/19 Dinner Active Chest 2V [CR] Routine Exams 03/24/19 18:40 Taken CULTURE BLOOD [BC] Stat Lab 03/24/19 17:45 Received CULTURE URINE [RM] Routine Lab 03/24/19 19:56 Received Albuterol/Ipratropium [DuoNeb 3.0-0.5 MG/3 ML] Med 03/25/19 13:00 Ordered 3 ml NEB QID Azithromycin [Zithromax] 500 mg Med 03/25/19 09:45 Ordered Sodium Chloride 0.9% [Normal Saline] 250 ml IV Q24H Budesonide/Formoterol [Symbicort 80-4.5 MCG] Med 03/25/19 21:00 Ordered 2 puff INH BID Enoxaparin [Lovenox] Med 03/25/19 09:45 Ordered 30 mg SUBCUT Q24H Finasteride [Proscar] Med 03/26/19 09:00 Ordered 5 mg PO DAILY Furosemide [Lasix] Med 03/26/19 09:00 Ordered 40 mg PO DAILY Naproxen Sodium Med 03/25/19 09:33 Ordered 440 mg PO BID PRN Sertraline [Zoloft] Med 03/26/19 09:00 Ordered 200 mg PO DAILY Sodium Chloride 0.9% [Normal Saline] 1,000 ml Med 03/24/19 17:45 Active IV ASDIRECTED Tamsulosin [Flomax] Med 03/26/19 09:00 Ordered 0.4 mg PO DAILY Temazepam [Restoril] Med 03/25/19 21:00 Ordered 15 mg PO BEDTIME Tiotropium [place] [Spiriva Respimat] Med 03/26/19 09:00 Ordered 2 puff IH DAILY cefTRIAXone [Rocephin] 1 gm Med 03/25/19 09:45 Ordered Sodium Chloride 0.9% [Normal Saline] 50 ml IV Q24H methylPREDNISolone Sod Succ [Solu-MEDROL] Med 03/25/19 09:00 Active 40 mg IVPUSH DAILY Resuscitation Status Routine Resus Stat 03/24/19 19:38 Ordered Medication Orders Albuterol/Ipratropium (Duoneb 3.0-0.5 Mg/3 Ml) 3 ml NEB QID MATTHEW Enoxaparin Sodium (Lovenox) 30 mg SUBCUT Q24H MATTHEW Finasteride (Proscar) 5 mg PO DAILY MATTHEW Furosemide (Lasix) 40 mg PO DAILY MATTHEW Sodium Chloride (Normal Saline) 1,000 mls @ 150 mls/hr IV ASDIRECTED MATTHEW Last Admin: 03/25/19 08:59 Dose: 150 mls/hr Infusion: 03/25/19 07:42 Dose: 150 mls/hr Admin: 03/25/19 01:01 Dose: 150 mls/hr Infusion: 03/25/19 01:01 Dose: 150 mls/hr Admin: 03/24/19 18:30 Dose: 150 mls/hr Azithromycin 500 mg/ Sodium (Chloride) 250 mls @ 250 mls/hr IV Q24H MATTHEW Ceftriaxone Sodium 1 gm/ (Sodium Chloride) 50 mls @ 200 mls/hr IV Q24H MATTHEW Methylprednisolone Sodium Succinate (Solu-Medrol) 40 mg IVPUSH DAILY MATTHEW Naproxen (Naproxen Sodium) 440 mg PO BID PRN PRN Reason: MODERATE PAIN Non-Formulary Medication (Budesonide/Formoterol [Symbicort 80-4.5 Mcg]) 2 puff INH BID MATTHEW Non-Formulary Medication (Tiotropium [place] [Spiriva Respimat]) 2 puff IH DAILY MATTHEW Sertraline HCl (Zoloft) 200 mg PO DAILY MATTHEW Tamsulosin HCl (Flomax) 0.4 mg PO DAILY MATTHEW Temazepam (Restoril) 15 mg PO BEDTIME MATTHEW Assessment/Plan Comment:: 1. Admit to inpatient for COPD exacerbation 2. Cover him with Rocephin and Zithromax until radiology clears his chest x- ray. Z-Hi has been shown to decrease COPD exacerbations even without infection. 3. Lovenox for VTE prophylaxis 4. Regular diet 5. Up with assist 6. PT/OT 7. O2 to keep sats between 88-92% 8. Social service see if [facility] to her [facility] would be a better place for this patient. 9. IV steroids 10. Nebulizers 4 times a day with every 4 hours when necessary.
[2019-03-25] MEDS: methylPREDNISolone Sodium Succinate 40 MG/1 ML SDV IVPUSH SCH (09:52)
[2019-03-25] MEDS ORDERED: Albuterol/Ipratropium 3.0-0.5 MG/3 ML Neb Soln NEB PRN (09:54)
[2019-03-25] MEDS ORDERED: Tiotropium Inhaler 18 MCG Inhalation Powder Cap Kit of 5 INH SCH (10:15)
[2019-03-25] MEDS: Azithromycin 500 MG in Sodium Chloride 0.9% 250 ML IV SCH (10:30)
[2019-03-25] MEDS: Furosemide 40 MG Tab PO SCH (10:42)
[2019-03-25] MEDS: Formoterol/Mometasone 100-5 MCG 8.8 GM Inhaler IH SCH ×2 (10:42→21:59)
[2019-03-25] MEDS: Enoxaparin 30 MG/0.3 ML Syringe SUBCUT SCH (10:43)
[2019-03-25] MEDS: Sertraline 100 MG Tab PO SCH (10:43)
[2019-03-25] MEDS: Finasteride 5 MG Tab PO SCH (10:43)
[2019-03-25] MEDS: Tamsulosin 0.4 MG Cap.ER PO SCH (10:43)
[2019-03-25] MEDS: Albuterol/Ipratropium 3.0-0.5 MG/3 ML Neb Soln NEB SCH ×3 (10:43→22:00)
[2019-03-25] MEDS: cefTRIAXone 1 GM Vial IV SCH (10:44)
[2019-03-25] MEDS ORDERED: ceFAZolin 1 GM Vial IVPUSH SCH (13:00)
[2019-03-25] MEDS ORDERED: Clotrimazole 1% Crm 30 GM Tube TOP SCH (21:00)
[2019-03-25] MEDS: Temazepam 15 MG Cap PO SCH (22:01)
[2019-03-26] MEDS: Albuterol/Ipratropium 3.0-0.5 MG/3 ML Neb Soln NEB SCH ×4 (06:34→20:00)
[2019-03-26] MEDS: Formoterol/Mometasone 100-5 MCG 8.8 GM Inhaler IH SCH ×2 (06:34→20:01)
[2019-03-26] MEDS: Tiotropium Inhaler 18 MCG Inhalation Powder Cap Kit of 5 INH SCH (09:49)
[2019-03-26] MEDS: Sertraline 100 MG Tab PO SCH (09:51)
[2019-03-26] MEDS: Tamsulosin 0.4 MG Cap.ER PO SCH (09:52)
[2019-03-26] MEDS: Furosemide 40 MG Tab PO SCH (09:52)
[2019-03-26] MEDS: Finasteride 5 MG Tab PO SCH (09:52)
[2019-03-26] MEDS: methylPREDNISolone Sodium Succinate 40 MG/1 ML SDV IVPUSH SCH (09:56)
[2019-03-26] MEDS: Clotrimazole 1% Crm 30 GM Tube TOP SCH ×2 (10:02→20:01)
[2019-03-26] MEDS: cefTRIAXone 1 GM Vial IV SCH (10:06)
[2019-03-26] MEDS: Enoxaparin 30 MG/0.3 ML Syringe SUBCUT SCH (10:22)
[2019-03-26] MEDS: Azithromycin 500 MG in Sodium Chloride 0.9% 250 ML IV SCH (10:24)
[2019-03-26] MEDS: Sodium Chloride 0.9% 10 ML Syringe FLUSH PRN ×2 (11:25→15:52)
--- NOTE | 2019-03-26 13:35 | PCM.PN ---
- General Info Date of Service: 03/26/19 Subjective Update: Patient feels less short of breath, OT stated this morning that he is very deconditioned, gets very short of breath just ambulating to the bathroom. Denies any pain, chest pain, normal bowel movements. OT discussed that he would be a candidate for swing bed for PT/OT services. Patient is in agreement with this. Day 2 of Rocephin & Azithromycin. - Review of Systems General: Denies: Fever, Chills Pulmonary: Reports: Shortness of Breath, Wheezing Cardiovascular: Denies: Chest Pain, Edema Gastrointestinal: Denies: Abdominal Pain, Constipation, Diarrhea, Nausea, Vomiting - Patient Data Vitals - Most Recent: Last Vital Signs Temp 36.7 C 03/26/19 00:30 Pulse 75 03/26/19 06:36 Resp 18 03/26/19 00:30 BP 120/64 03/26/19 00:30 Pulse Ox 94 L 03/26/19 00:30 Weight - Most Recent: 77.927 kg I&O - Last 24 Hours: Intake & Output 03/25/19 03/26/19 03/26/19 22:59 06:59 14:59 Output Total 950 150 Balance -950 -150 Eran Results Last 24 Hours: Microbiology 03/24/19 17:45 Aerobic Blood Culture - Preliminary Blood NO GROWTH AFTER 1 DAY Anaerobic Blood Culture - Preliminary NO GROWTH AFTER 1 DAY 03/24/19 19:56 Urine Culture - Preliminary Urine, Clean Catch No Growth Med Orders - Current: Current Medications Albuterol/Ipratropium (Duoneb 3.0-0.5 Mg/3 Ml) 3 ml NEB QIDRT [facility] Last Admin: 03/26/19 10:29 Dose: 3 ml Albuterol/Ipratropium (Duoneb 3.0-0.5 Mg/3 Ml) 3 ml NEB Q2H PRN PRN Reason: SHORTNESS OF BREATH Ceftriaxone Sodium (Rocephin) 1 gm IV Q24H [facility] Last Admin: 03/26/19 10:06 Dose: 1 gm Clotrimazole (Lotrimin Af 1% Crm) 0 gm TOP BID [facility] Last Admin: 03/26/19 10:02 Dose: 1 applic Enoxaparin Sodium (Lovenox) 30 mg SUBCUT Q24H [facility] Last Admin: 03/26/19 10:22 Dose: 30 mg Finasteride (Proscar) 5 mg PO DAILY [facility] Last Admin: 03/26/19 09:52 Dose: 5 mg Furosemide (Lasix) 40 mg PO DAILY [facility] Last Admin: 03/26/19 09:52 Dose: 40 mg Azithromycin 500 mg/ Sodium (Chloride) 250 mls @ 250 mls/hr IV Q24H [facility] Last Admin: 03/26/19 10:24 Dose: 250 mls/hr Methylprednisolone Sodium Succinate (Solu-Medrol) 40 mg IVPUSH DAILY [facility] Last Admin: 03/26/19 09:56 Dose: 40 mg Mometasone Furoate/Formoterol Fumar (Dulera 100-5 Mcg) 2 puff IH BIDRT [facility] Last Admin: 03/26/19 06:34 Dose: 2 puff Naproxen (Naproxen Sodium) 440 mg PO BID PRN PRN Reason: MODERATE PAIN Sertraline HCl (Zoloft) 200 mg PO DAILY [facility] Last Admin: 03/26/19 09:51 Dose: 200 mg Sodium Chloride (Saline Flush) 10 ml FLUSH ASDIRECTED PRN PRN Reason: Flush Last Admin: 03/26/19 11:25 Dose: 10 ml Tamsulosin HCl (Flomax) 0.4 mg PO DAILY [facility] Last Admin: 03/26/19 09:52 Dose: 0.4 mg Temazepam (Restoril) 15 mg PO BEDTIME [facility] Last Admin: 03/25/19 22:01 Dose: 15 mg Tiotropium [place] (Spiriva Handihaler) 18 mcg INH DAILY [facility] Last Admin: 03/26/19 09:49 Dose: 18 mcg Discontinued Medications Albuterol/Ipratropium (Duoneb 3.0-0.5 Mg/3 Ml) 3 ml NEB ONETIME ONE Stop: 03/24/19 17:45 Last Admin: 03/24/19 18:20 Dose: 3 ml Albuterol/Ipratropium (Duoneb 3.0-0.5 Mg/3 Ml) 3 ml NEB Q2H PRN PRN Reason: Wheezing Last Admin: 03/25/19 05:41 Dose: 3 ml Cefazolin Sodium (Ancef) 1 gm IVPUSH Q8H [facility] Last Admin: 03/24/19 21:28 Dose: 1 gm Cefazolin Sodium (Ancef) Confirm Administered Dose 1 gm .ROUTE .STK-MED ONE Stop: 03/24/19 21:24 Last Admin: 03/24/19 22:13 Dose: Not Given Cefazolin Sodium (Ancef) Confirm Administered Dose 1 gm .ROUTE .STK-MED ONE Stop: 03/25/19 04:04 Last Admin: 03/25/19 05:00 Dose: 1 gm Cefazolin Sodium (Ancef) 1 gm IVPUSH Q8H [facility] Clotrimazole (Lotrimin Af 1% Crm) 0 gm TOP BID [facility] Last Admin: 03/25/19 22:00 Dose: 1 applic Sodium Chloride (Normal Saline) 1,000 mls @ 150 mls/hr IV ASDIRECTED [facility] Last Admin: 03/25/19 08:59 Dose: 150 mls/hr Cefazolin Sodium 1 gm/ Sodium (Chloride) 50 mls @ 100 mls/hr IV Q8H [facility] Last Admin: 03/25/19 05:00 Dose: 100 mls/hr Methylprednisolone Sodium Succinate (Solu-Medrol) 125 mg IVPUSH ONETIME ONE Stop: 03/24/19 18:57 Last Admin: 03/24/19 19:16 Dose: 125 mg Tiotropium [place] (Spiriva Handihaler) 18 mcg INH DAILY MATTHEW - Exam Quality Assessment: Supplemental Oxygen General: Alert, Oriented, Cooperative Lungs: Decreased Breath Sounds, Wheezing Cardiovascular: Regular Rate, Regular Rhythm GI/Abdominal Exam: Normal Bowel Sounds, Soft, Non-Tender, No Distention Extremities: No Pedal Edema - Problem List & Annotations (1) COPD, Moderate chronic obstructive pulmonary disease SNOMED Code(s): 428576833 Code(s): J44.9 - CHRONIC OBSTRUCTIVE PULMONARY DISEASE, UNSPECIFIED Status : Acute Priority: Medium Current Visit: Yes Onset Date: 11/12/14 Annotation/Comment:: continue present therapy (2) Palliative care status SNOMED Code(s): 661520249 Code(s): Z51.5 - ENCOUNTER FOR PALLIATIVE CARE Status: Acute Current Visit: Yes - Problem List Review Problem List Initiated/Reviewed/Updated: Yes - Plan Plan:: 1. Rocephin and Zithromax day 2. 2. Lovenox for VTE prophylaxis 3. PT/OT agree that he would benefit from services so will place in swing bed on Friday. 4. O2 to keep sats between 88-92% 5. Social service see if [facility] or skilled nursing would be a better place for this patient. 6. IV steroids, will start to wean down tomorrow. 7. Nebulizers 4 times a day with every 4 hours when necessary.
[2019-03-26] MEDS: Temazepam 15 MG Cap PO SCH (20:11)
[2019-03-27] MEDS: Albuterol/Ipratropium 3.0-0.5 MG/3 ML Neb Soln NEB SCH ×2 (06:26→10:19)
[2019-03-27] MEDS: Formoterol/Mometasone 100-5 MCG 8.8 GM Inhaler IH SCH ×2 (06:27→20:47)
[2019-03-27] MEDS: Sertraline 100 MG Tab PO SCH (08:51)
[2019-03-27] MEDS: Finasteride 5 MG Tab PO SCH (08:51)
[2019-03-27] MEDS: Clotrimazole 1% Crm 30 GM Tube TOP SCH ×2 (08:51→20:47)
[2019-03-27] MEDS: Tamsulosin 0.4 MG Cap.ER PO SCH (08:51)
[2019-03-27] MEDS: Tiotropium Inhaler 18 MCG Inhalation Powder Cap Kit of 5 INH SCH (08:52)
[2019-03-27] MEDS: methylPREDNISolone Sodium Succinate 40 MG/1 ML SDV IVPUSH SCH ×2 (08:52→21:14)
[2019-03-27] MEDS: Sodium Chloride 0.9% 10 ML Syringe FLUSH PRN ×3 (08:59→21:14)
[2019-03-27] MEDS: Furosemide 40 MG Tab PO SCH (09:45)
[2019-03-27] MEDS: cefTRIAXone 1 GM Vial IV SCH (09:47)
[2019-03-27] MEDS: Azithromycin 500 MG in Sodium Chloride 0.9% 250 ML IV SCH (09:58)
[2019-03-27] MEDS: Enoxaparin 30 MG/0.3 ML Syringe SUBCUT SCH (10:00)
--- NOTE | 2019-03-27 11:53 | PCM.PN ---
- General Info Date of Service: 03/27/19 Subjective Update: Patient coughing up sputum but just sitting in the back of his throat and only can get spit coughed out. Breathing the same. No dizziness/lightheadedness. No chest pain or shortness of breath. - Patient Data Vitals - Most Recent: Last Vital Signs Temp 36.5 C 03/27/19 05:45 Pulse 74 03/27/19 05:45 Resp 20 03/27/19 05:45 BP 124/70 03/27/19 05:45 Pulse Ox 95 03/27/19 06:35 Weight - Most Recent: 77.927 kg I&O - Last 24 Hours: Intake & Output 03/26/19 03/27/19 03/27/19 22:59 06:59 14:59 Output Total 300 350 200 Balance -300 -350 -200 Lab Results Last 24 Hours: Laboratory Results - last 24 hr 03/27/19 03/27/19 Range/Units 06:20 06:20 WBC 6.9 (4.5-12.0) X10-3/uL RBC 3.57 L (4.30-5.75) x10(6)uL Hgb 10.9 L (13.5-17.8) g/dL Hct 32.1 (30.0-51.3) % MCV 90.0 (80-96) fL MCH 30.6 (27.7-33.6) pg MCHC 34.0 (32.2-35.4) g/dL RDW 15.2 (11.5-15.5) % Plt Count 312 (125-369) X10(3)uL Sodium 138 (135-145) mmol/L Potassium 3.9 (3.5-5.3) mmol/L Chloride 104 (100-110) mmol/L Carbon Dioxide 29 (21-32) mmol/L BUN 20 H (7-18) mg/dL Creatinine 1.0 (0.70-1.30) mg/dL Est Cr Clr Drug Dosing 56.48 mL/min Estimated GFR (MDRD) > 60 (>60) BUN/Creatinine Ratio 20.0 (9-20) Glucose 83 (80-116) mg/dL Calcium 8.4 L (8.6-10.2) mg/dL Eran Results Last 24 Hours: Microbiology 03/24/19 17:45 Aerobic Blood Culture - Preliminary Blood NO GROWTH AFTER 2 DAYS Anaerobic Blood Culture - Preliminary NO GROWTH AFTER 2 DAYS 03/24/19 19:56 Urine Culture - Final Urine, Clean Catch NO GROWTH AFTER 2 DAYS Med Orders - Current: Current Medications Albuterol/Ipratropium (Duoneb 3.0-0.5 Mg/3 Ml) 3 ml NEB QIDRT [facility] Last Admin: 03/27/19 10:19 Dose: 3 ml Albuterol/Ipratropium (Duoneb 3.0-0.5 Mg/3 Ml) 3 ml NEB Q2H PRN PRN Reason: SHORTNESS OF BREATH Ceftriaxone Sodium (Rocephin) 1 gm IV Q24H [facility] Last Admin: 03/27/19 09:47 Dose: 1 gm Clotrimazole (Lotrimin Af 1% Crm) 0 gm TOP BID [facility] Last Admin: 03/27/19 08:51 Dose: 1 applic Enoxaparin Sodium (Lovenox) 30 mg SUBCUT Q24H [facility] Last Admin: 03/27/19 10:00 Dose: 30 mg Finasteride (Proscar) 5 mg PO DAILY [facility] Last Admin: 03/27/19 08:51 Dose: 5 mg Furosemide (Lasix) 40 mg PO DAILY [facility] Last Admin: 03/27/19 09:45 Dose: Not Given Azithromycin 500 mg/ Sodium (Chloride) 250 mls @ 250 mls/hr IV Q24H [facility] Last Admin: 03/27/19 09:58 Dose: 250 mls/hr Methylprednisolone Sodium Succinate (Solu-Medrol) 40 mg IVPUSH DAILY [facility] Last Admin: 03/27/19 08:52 Dose: 40 mg Mometasone Furoate/Formoterol Fumar (Dulera 100-5 Mcg) 2 puff IH BIDRT [facility] Last Admin: 03/27/19 06:27 Dose: 2 puff Naproxen (Naproxen Sodium) 440 mg PO BID PRN PRN Reason: MODERATE PAIN Sertraline HCl (Zoloft) 200 mg PO DAILY [facility] Last Admin: 03/27/19 08:51 Dose: 200 mg Sodium Chloride (Saline Flush) 10 ml FLUSH ASDIRECTED PRN PRN Reason: Flush Last Admin: 03/27/19 11:04 Dose: 10 ml Tamsulosin HCl (Flomax) 0.4 mg PO DAILY [facility] Last Admin: 03/27/19 08:51 Dose: 0.4 mg Temazepam (Restoril) 15 mg PO BEDTIME [facility] Last Admin: 03/26/19 20:11 Dose: 15 mg Tiotropium [place] (Spiriva Handihaler) 18 mcg INH DAILY [facility] Last Admin: 03/27/19 08:52 Dose: 18 mcg Discontinued Medications Albuterol/Ipratropium (Duoneb 3.0-0.5 Mg/3 Ml) 3 ml NEB ONETIME ONE Stop: 03/24/19 17:45 Last Admin: 03/24/19 18:20 Dose: 3 ml Albuterol/Ipratropium (Duoneb 3.0-0.5 Mg/3 Ml) 3 ml NEB Q2H PRN PRN Reason: Wheezing Last Admin: 03/25/19 05:41 Dose: 3 ml Cefazolin Sodium (Ancef) 1 gm IVPUSH Q8H [facility] Last Admin: 03/24/19 21:28 Dose: 1 gm Cefazolin Sodium (Ancef) Confirm Administered Dose 1 gm .ROUTE .STK-MED ONE Stop: 03/24/19 21:24 Last Admin: 03/24/19 22:13 Dose: Not Given Cefazolin Sodium (Ancef) Confirm Administered Dose 1 gm .ROUTE .STK-MED ONE Stop: 03/25/19 04:04 Last Admin: 03/25/19 05:00 Dose: 1 gm Cefazolin Sodium (Ancef) 1 gm IVPUSH Q8H [facility] Clotrimazole (Lotrimin Af 1% Crm) 0 gm TOP BID [facility] Last Admin: 03/25/19 22:00 Dose: 1 applic Sodium Chloride (Normal Saline) 1,000 mls @ 150 mls/hr IV ASDIRECTED [facility] Last Admin: 03/25/19 08:59 Dose: 150 mls/hr Cefazolin Sodium 1 gm/ Sodium (Chloride) 50 mls @ 100 mls/hr IV Q8H [facility] Last Admin: 03/25/19 05:00 Dose: 100 mls/hr Methylprednisolone Sodium Succinate (Solu-Medrol) 125 mg IVPUSH ONETIME ONE Stop: 03/24/19 18:57 Last Admin: 03/24/19 19:16 Dose: 125 mg Tiotropium [place] (Spiriva Handihaler) 18 mcg INH DAILY MATTHEW - Exam General: Alert, Oriented Lungs: Normal Respiratory Effort, Decreased Breath Sounds, Wheezing, Other (wet respirations) Cardiovascular: Regular Rate, Regular Rhythm GI/Abdominal Exam: Normal Bowel Sounds, Soft, Non-Tender - Problem List & Annotations (1) COPD, Moderate chronic obstructive pulmonary disease SNOMED Code(s): 180210309 Code(s): J44.9 - CHRONIC OBSTRUCTIVE PULMONARY DISEASE, UNSPECIFIED Status : Acute Priority: Medium Current Visit: Yes Onset Date: 11/12/14 Annotation/Comment:: continue present therapy (2) Palliative care status SNOMED Code(s): 689298882 Code(s): Z51.5 - ENCOUNTER FOR PALLIATIVE CARE Status: Acute Current Visit: Yes - Problem List Review Problem List Initiated/Reviewed/Updated: Yes - Plan Plan:: 1. Rocephin and Zithromax day 3. 2. Lovenox for VTE prophylaxis 3. PT/OT continue, moved to swing bed friday. 4. O2 to keep sats between 88-92% 5. Social service see if [facility] or [facility] would be a better place for this patient. 6. Solumedrol 40 mg IV change to q12h from daily. 7. Nebulizers 4 times a day with every 4 hours when necessary. Will add some mucinex bid to help with secretions, nurse to suction as needed.
[2019-03-27] MEDS ORDERED: guaiFENesin 600 MG Tab.ER PO SCH (12:00)
[2019-03-27] MEDS ORDERED: methylPREDNISolone Sodium Succinate 40 MG/1 ML SDV IVPUSH SCH (12:00)
[2019-03-27] MEDS ORDERED: Nitroglycerin 0.4 MG Tab.SL ONE (12:52)
[2019-03-27] MEDS ORDERED: Nitroglycerin/D5W 0 MG/0 ML BOTTLE ONE (12:52)
[2019-03-27] MEDS ORDERED: Acetylcysteine 20% 200 MG/ML 30 ML Nebulizer Soln SDV NEB ONE (12:56)
[2019-03-27] MEDS ORDERED: Nitroglycerin 0.4 MG Tab.SL SL PRN (12:57)
[2019-03-27] MEDS ORDERED: Acetylcysteine 20% 200 MG/ML 30 ML Nebulizer Soln SDV NEB PRN (13:07)
[2019-03-27] MEDS: guaiFENesin 600 MG Tab.ER PO PRN ×2 (13:30→20:54)
--- NOTE | 2019-03-27 14:05 | PCM.PN ---
- General Info Date of Service: 03/27/19 Subjective Update: Patient reported to nurse that he was having 9/10 substernal chest pain, non- radiating that started shortly after his DuoNeb treatment at 11. Patient notified staff at 1245 of pain. Denies any diaphoresis or change in shortness of breath. No nausea. Family present in room. - Patient Data Vitals - Most Recent: Last Vital Signs Temp 36.5 C 03/27/19 05:45 Pulse 74 03/27/19 05:45 Resp 20 03/27/19 05:45 BP 147/84 H 03/27/19 12:51 Pulse Ox 95 03/27/19 06:35 Weight - Most Recent: 77.927 kg I&O - Last 24 Hours: Intake & Output 03/26/19 03/27/19 03/27/19 22:59 06:59 14:59 Output Total 300 350 200 Balance -300 -350 -200 Lab Results Last 24 Hours: Laboratory Results - last 24 hr 03/27/19 03/27/19 03/27/19 Range/Units 06:20 06:20 12:55 WBC 6.9 (4.5-12.0) X10-3/uL RBC 3.57 L (4.30-5.75) x10(6)uL Hgb 10.9 L (13.5-17.8) g/dL Hct 32.1 (30.0-51.3) % MCV 90.0 (80-96) fL MCH 30.6 (27.7-33.6) pg MCHC 34.0 (32.2-35.4) g/dL RDW 15.2 (11.5-15.5) % Plt Count 312 (125-369) X10(3)uL Sodium 138 (135-145) mmol/L Potassium 3.9 (3.5-5.3) mmol/L Chloride 104 (100-110) mmol/L Carbon Dioxide 29 (21-32) mmol/L BUN 20 H (7-18) mg/dL Creatinine 1.0 (0.70-1.30) mg/dL Est Cr Clr Drug Dosing 56.48 mL/min Estimated GFR (MDRD) > 60 (>60) BUN/Creatinine Ratio 20.0 (9-20) Glucose 83 (80-116) mg/dL Calcium 8.4 L (8.6-10.2) mg/dL Troponin I 0.028 (<0.017-0.056) ng/mL Eran Results Last 24 Hours: Microbiology 03/24/19 17:45 Aerobic Blood Culture - Preliminary Blood NO GROWTH AFTER 2 DAYS Anaerobic Blood Culture - Preliminary NO GROWTH AFTER 2 DAYS 03/24/19 19:56 Urine Culture - Final Urine, Clean Catch NO GROWTH AFTER 2 DAYS Med Orders - Current: Current Medications Acetylcysteine (Mucomyst 20%) 1 mg NEB ONETIME PRN PRN Reason: Other Ceftriaxone Sodium (Rocephin) 1 gm IV Q24H [facility] Last Admin: 03/27/19 09:47 Dose: 1 gm Clotrimazole (Lotrimin Af 1% Crm) 0 gm TOP BID [facility] Last Admin: 03/27/19 08:51 Dose: 1 applic Enoxaparin Sodium (Lovenox) 30 mg SUBCUT Q24H [facility] Last Admin: 03/27/19 10:00 Dose: 30 mg Finasteride (Proscar) 5 mg PO DAILY [facility] Last Admin: 03/27/19 08:51 Dose: 5 mg Furosemide (Lasix) 40 mg PO DAILY [facility] Last Admin: 03/27/19 09:45 Dose: Not Given Guaifenesin (Mucinex) 600 mg PO BID PRN PRN Reason: Cough Last Admin: 03/27/19 13:30 Dose: 600 mg Azithromycin 500 mg/ Sodium (Chloride) 250 mls @ 250 mls/hr IV Q24H [facility] Last Admin: 03/27/19 09:58 Dose: 250 mls/hr Levalbuterol HCl (Xopenex) 1.25 mg NEB Q8H PRN PRN Reason: Wheezing Methylprednisolone Sodium Succinate (Solu-Medrol) 40 mg IVPUSH Q12H [facility] Last Admin: 03/27/19 13:26 Dose: Not Given Mometasone Furoate/Formoterol Fumar (Dulera 100-5 Mcg) 2 puff IH BIDRT [facility] Last Admin: 03/27/19 06:27 Dose: 2 puff Naproxen (Naproxen Sodium) 440 mg PO BID PRN PRN Reason: MODERATE PAIN Nitroglycerin (Nitrostat) 0.4 mg SL Q5M PRN PRN Reason: Chest Pain Sertraline HCl (Zoloft) 200 mg PO DAILY [facility] Last Admin: 03/27/19 08:51 Dose: 200 mg Sodium Chloride (Saline Flush) 10 ml FLUSH ASDIRECTED PRN PRN Reason: Flush Last Admin: 03/27/19 11:04 Dose: 10 ml Tamsulosin HCl (Flomax) 0.4 mg PO DAILY [facility] Last Admin: 03/27/19 08:51 Dose: 0.4 mg Temazepam (Restoril) 15 mg PO BEDTIME [facility] Last Admin: 03/26/19 20:11 Dose: 15 mg Tiotropium [place] (Spiriva Handihaler) 18 mcg INH DAILY [facility] Last Admin: 03/27/19 08:52 Dose: 18 mcg Discontinued Medications Acetylcysteine (Mucomyst 20%) 1 mg NEB ONETIME ONE Stop: 03/27/19 12:57 Albuterol/Ipratropium (Duoneb 3.0-0.5 Mg/3 Ml) 3 ml NEB ONETIME ONE Stop: 03/24/19 17:45 Last Admin: 03/24/19 18:20 Dose: 3 ml Albuterol/Ipratropium (Duoneb 3.0-0.5 Mg/3 Ml) 3 ml NEB Q2H PRN PRN Reason: Wheezing Last Admin: 03/25/19 05:41 Dose: 3 ml Albuterol/Ipratropium (Duoneb 3.0-0.5 Mg/3 Ml) 3 ml NEB QIDRT [facility] Last Admin: 03/27/19 10:19 Dose: 3 ml Albuterol/Ipratropium (Duoneb 3.0-0.5 Mg/3 Ml) 3 ml NEB Q2H PRN PRN Reason: SHORTNESS OF BREATH Cefazolin Sodium (Ancef) 1 gm IVPUSH Q8H [facility] Last Admin: 03/24/19 21:28 Dose: 1 gm Cefazolin Sodium (Ancef) Confirm Administered Dose 1 gm .ROUTE .STK-MED ONE Stop: 03/24/19 21:24 Last Admin: 03/24/19 22:13 Dose: Not Given Cefazolin Sodium (Ancef) Confirm Administered Dose 1 gm .ROUTE .STK-MED ONE Stop: 03/25/19 04:04 Last Admin: 03/25/19 05:00 Dose: 1 gm Cefazolin Sodium (Ancef) 1 gm IVPUSH Q8H [facility] Clotrimazole (Lotrimin Af 1% Crm) 0 gm TOP BID [facility] Last Admin: 03/25/19 22:00 Dose: 1 applic Guaifenesin (Mucinex) 600 mg PO BID [facility] Last Admin: 03/27/19 13:23 Dose: Not Given Sodium Chloride (Normal Saline) 1,000 mls @ 150 mls/hr IV ASDIRECTED [facility] Last Admin: 03/25/19 08:59 Dose: 150 mls/hr Cefazolin Sodium 1 gm/ Sodium (Chloride) 50 mls @ 100 mls/hr IV Q8H [facility] Last Admin: 03/25/19 05:00 Dose: 100 mls/hr Nitroglycerin/Dextrose (Nitroglycerin 25 Mg/D5w 250 Ml) Confirm Administered Dose 25 mg in 250 mls @ as directed .ROUTE .STK-MED ONE Stop: 03/27/19 12:53 Methylprednisolone Sodium Succinate (Solu-Medrol) 125 mg IVPUSH ONETIME ONE Stop: 03/24/19 18:57 Last Admin: 03/24/19 19:16 Dose: 125 mg Methylprednisolone Sodium Succinate (Solu-Medrol) 40 mg IVPUSH DAILY [facility] Last Admin: 03/27/19 08:52 Dose: 40 mg Nitroglycerin (Nitrostat) Confirm Administered Dose 0.4 mg .ROUTE .STK-MED ONE Stop: 03/27/19 12:53 Last Admin: 03/27/19 12:51 Dose: 0.4 mg Tiotropium [place] (Spiriva Handihaler) 18 mcg INH DAILY [facility] - Exam Quality Assessment: Supplemental Oxygen General: Alert, Oriented, No Acute Distress Lungs: Decreased Breath Sounds, Wheezing Cardiovascular: Tachycardia EKG INTERPRETATION EKG Date: 03/27/19 Time: 12:45 Rhythm: Other (Sinus Tachycardia) Benson: LAD-Left Benson Deviation (-22 degrees) P-Wave: Present QRS: Normal ST-T: Normal QT: Normal Comparison: NA - No Prior EKG EKG Interpretation Comments: Sinus Tachycardia. Borderline Left Benson deviation - Problem List & Annotations (1) COPD, Moderate chronic obstructive pulmonary disease SNOMED Code(s): 920879581 Code(s): J44.9 - CHRONIC OBSTRUCTIVE PULMONARY DISEASE, UNSPECIFIED Status : Acute Priority: Medium Current Visit: Yes Onset Date: 11/12/14 Annotation/Comment:: continue present therapy (2) Palliative care status SNOMED Code(s): 512892878 Code(s): Z51.5 - ENCOUNTER FOR PALLIATIVE CARE Status: Acute Current Visit: Yes (3) Chest pain SNOMED Code(s): 70934920 Code(s): R07.9 - CHEST PAIN, UNSPECIFIED Status: Acute Current Visit: Yes Onset Date: 03/27/19 Qualifiers: Chest pain type: precordial pain Qualified Code(s): R07.2 - Precordial pain - Problem List Review Problem List Initiated/Reviewed/Updated: Yes - My Orders Last 24 Hours: My Active Orders 03/27/19 12:00 methylPREDNISolone Sod Succ [Solu-MEDROL] 40 mg IVPUSH Q12H 03/27/19 12:45 EKG Documentation Completion [RC] ASDIRECTED EKG 12 Lead [EK] Stat 03/27/19 12:57 RT Aerosol Therapy [RC] ASDIRECTED Nitroglycerin [Nitrostat] 0.4 mg SL Q5M PRN 03/27/19 13:07 Acetylcysteine [Mucomyst 20%] 1 mg NEB ONETIME PRN guaiFENesin [Mucinex] 600 mg PO BID PRN 03/27/19 13:13 Levalbuterol HCl [Xopenex] 1.25 mg NEB Q8H PRN 03/27/19 13:14 RT Aerosol Therapy [RC] ASDIRECTED - Plan Plan:: Assessed patient, reviewed EKG. SL Nitroglycerin given x 1, no change in pain. Troponin ordered, came back within normal range. While awaiting test results patient was sleeping and resting comfortably in bed. Reviewed labs and EKG findings with family. Reviewed medications, patient is on Dulera, Spiriva and DuoNebs scheduled along with DuoNebs prn. Discontinued DuoNebs scheduled and PRN. Started Xopenex nebs qid PRN for shortness of breath and reassess how he is doing. Would benefit from Flutter Valve(Acapella device) to mobilize secretions. Added Mucinex BID and Mucomyst one time prn to help thin mucus secretions down and help mobilize. Daughter stated she had talked with her brothers and her dad about the need to go into the penitentiary. Patient is in agreement to go into penitentiary as he acknowledges he needs more cares than he is getting at assisted living. Will discuss with social media job titles on Friday, Family would prefer [facility] over [facility]. Time spent with family: 20 min.
[2019-03-27] MEDS: Levalbuterol HCl 1.25 MG/3 ML Neb NEB PRN (16:17)
[2019-03-27] MEDS: Temazepam 15 MG Cap PO SCH (20:54)
[2019-03-28] MEDS: Formoterol/Mometasone 100-5 MCG 8.8 GM Inhaler IH SCH ×2 (06:40→20:09)
[2019-03-28] MEDS: Clotrimazole 1% Crm 30 GM Tube TOP SCH ×2 (09:21→20:09)
[2019-03-28] MEDS: Tamsulosin 0.4 MG Cap.ER PO SCH (09:21)
[2019-03-28] MEDS: Furosemide 40 MG Tab PO SCH (09:21)
[2019-03-28] MEDS: Finasteride 5 MG Tab PO SCH (09:22)
[2019-03-28] MEDS: methylPREDNISolone Sodium Succinate 40 MG/1 ML SDV IVPUSH SCH ×2 (09:22→20:08)
[2019-03-28] MEDS: Tiotropium Inhaler 18 MCG Inhalation Powder Cap Kit of 5 INH SCH (09:23)
[2019-03-28] MEDS: Sertraline 100 MG Tab PO SCH (09:24)
[2019-03-28] MEDS: Enoxaparin 30 MG/0.3 ML Syringe SUBCUT SCH (09:25)
[2019-03-28] MEDS: Levalbuterol HCl 1.25 MG/3 ML Neb NEB PRN (09:33)
--- NOTE | 2019-03-28 10:00 | PCM.PN ---
- General Info Date of Service: 03/28/19 Subjective Update: Patient feeling better this morning, flutter valve started yesterday. Feels he doesn't have as much to cough up today. Denies any further chest pain. Eating well. When asked he does agree with his daughter that he needs to go to the correction. No diarrhea. Good appetite. Didn't notice his heart racing with the Xopenex. - Patient Data Vitals - Most Recent: Last Vital Signs Temp 36.8 C 03/28/19 04:00 Pulse 72 03/28/19 04:00 Resp 18 03/28/19 04:00 BP 120/62 03/28/19 04:00 Pulse Ox 96 03/28/19 04:00 Weight - Most Recent: 77.927 kg I&O - Last 24 Hours: Intake & Output 03/27/19 03/28/19 03/28/19 22:59 06:59 14:59 Intake Total 450 Output Total 400 Balance 50 Lab Results Last 24 Hours: Laboratory Results - last 24 hr 03/27/19 Range/Units 12:55 Troponin I 0.028 (<0.017-0.056) ng/mL Eran Results Last 24 Hours: Microbiology 03/24/19 17:45 Aerobic Blood Culture - Preliminary Blood NO GROWTH AFTER 3 DAYS Anaerobic Blood Culture - Preliminary NO GROWTH AFTER 3 DAYS Med Orders - Current: Current Medications Acetylcysteine (Mucomyst 20%) 1 mg NEB ONETIME PRN PRN Reason: Other Ceftriaxone Sodium (Rocephin) 1 gm IV Q24H [facility] Last Admin: 03/27/19 09:47 Dose: 1 gm Clotrimazole (Lotrimin Af 1% Crm) 0 gm TOP BID [facility] Last Admin: 03/28/19 09:21 Dose: 1 applic Enoxaparin Sodium (Lovenox) 30 mg SUBCUT Q24H [facility] Last Admin: 03/28/19 09:25 Dose: 30 mg Finasteride (Proscar) 5 mg PO DAILY [facility] Last Admin: 03/28/19 09:22 Dose: 5 mg Furosemide (Lasix) 40 mg PO DAILY [facility] Last Admin: 03/28/19 09:21 Dose: 40 mg Guaifenesin (Mucinex) 600 mg PO BID PRN PRN Reason: Cough Last Admin: 03/27/19 20:54 Dose: 600 mg Azithromycin 500 mg/ Sodium (Chloride) 250 mls @ 250 mls/hr IV Q24H [facility] Last Admin: 03/27/19 09:58 Dose: 250 mls/hr Levalbuterol HCl (Xopenex) 1.25 mg NEB Q8H PRN PRN Reason: Wheezing Last Admin: 03/28/19 09:33 Dose: 1.25 mg Methylprednisolone Sodium Succinate (Solu-Medrol) 40 mg IVPUSH BID@0900,2100 [facility] Last Admin: 03/28/19 09:22 Dose: 40 mg Mometasone Furoate/Formoterol Fumar (Dulera 100-5 Mcg) 2 puff IH BIDRT [facility] Last Admin: 03/28/19 06:40 Dose: 2 puff Naproxen (Naproxen Sodium) 440 mg PO BID PRN PRN Reason: MODERATE PAIN Nitroglycerin (Nitrostat) 0.4 mg SL Q5M PRN PRN Reason: Chest Pain Sertraline HCl (Zoloft) 200 mg PO DAILY [facility] Last Admin: 03/28/19 09:24 Dose: 200 mg Sodium Chloride (Saline Flush) 10 ml FLUSH ASDIRECTED PRN PRN Reason: Flush Last Admin: 03/27/19 21:14 Dose: 10 ml Tamsulosin HCl (Flomax) 0.4 mg PO DAILY [facility] Last Admin: 03/28/19 09:21 Dose: 0.4 mg Temazepam (Restoril) 15 mg PO BEDTIME [facility] Last Admin: 03/27/19 20:54 Dose: 15 mg Tiotropium [place] (Spiriva Handihaler) 18 mcg INH DAILY [facility] Last Admin: 03/28/19 09:23 Dose: 18 mcg Discontinued Medications Acetylcysteine (Mucomyst 20%) 1 mg NEB ONETIME ONE Stop: 03/27/19 12:57 Last Admin: 03/27/19 15:28 Dose: Not Given Albuterol/Ipratropium (Duoneb 3.0-0.5 Mg/3 Ml) 3 ml NEB ONETIME ONE Stop: 03/24/19 17:45 Last Admin: 03/24/19 18:20 Dose: 3 ml Albuterol/Ipratropium (Duoneb 3.0-0.5 Mg/3 Ml) 3 ml NEB Q2H PRN PRN Reason: Wheezing Last Admin: 03/25/19 05:41 Dose: 3 ml Albuterol/Ipratropium (Duoneb 3.0-0.5 Mg/3 Ml) 3 ml NEB QIDRT [facility] Last Admin: 03/27/19 10:19 Dose: 3 ml Albuterol/Ipratropium (Duoneb 3.0-0.5 Mg/3 Ml) 3 ml NEB Q2H PRN PRN Reason: SHORTNESS OF BREATH Cefazolin Sodium (Ancef) 1 gm IVPUSH Q8H [facility] Last Admin: 03/24/19 21:28 Dose: 1 gm Cefazolin Sodium (Ancef) Confirm Administered Dose 1 gm .ROUTE .STK-MED ONE Stop: 03/24/19 21:24 Last Admin: 03/24/19 22:13 Dose: Not Given Cefazolin Sodium (Ancef) Confirm Administered Dose 1 gm .ROUTE .STK-MED ONE Stop: 03/25/19 04:04 Last Admin: 03/25/19 05:00 Dose: 1 gm Cefazolin Sodium (Ancef) 1 gm IVPUSH Q8H [facility] Clotrimazole (Lotrimin Af 1% Crm) 0 gm TOP BID [facility] Last Admin: 03/25/19 22:00 Dose: 1 applic Guaifenesin (Mucinex) 600 mg PO BID [facility] Last Admin: 03/27/19 13:23 Dose: Not Given Sodium Chloride (Normal Saline) 1,000 mls @ 150 mls/hr IV ASDIRECTED [facility] Last Admin: 03/25/19 08:59 Dose: 150 mls/hr Cefazolin Sodium 1 gm/ Sodium (Chloride) 50 mls @ 100 mls/hr IV Q8H [facility] Last Admin: 03/25/19 05:00 Dose: 100 mls/hr Nitroglycerin/Dextrose (Nitroglycerin 25 Mg/D5w 250 Ml) Confirm Administered Dose 25 mg in 250 mls @ as directed .ROUTE .STK-MED ONE Stop: 03/27/19 12:53 Last Admin: 03/27/19 15:28 Dose: Not Given Methylprednisolone Sodium Succinate (Solu-Medrol) 125 mg IVPUSH ONETIME ONE Stop: 03/24/19 18:57 Last Admin: 03/24/19 19:16 Dose: 125 mg Methylprednisolone Sodium Succinate (Solu-Medrol) 40 mg IVPUSH DAILY [facility] Last Admin: 03/27/19 08:52 Dose: 40 mg Methylprednisolone Sodium Succinate (Solu-Medrol) 40 mg IVPUSH Q12H [facility] Last Admin: 03/27/19 13:26 Dose: Not Given Nitroglycerin (Nitrostat) Confirm Administered Dose 0.4 mg .ROUTE .STK-MED ONE Stop: 03/27/19 12:53 Last Admin: 03/27/19 12:51 Dose: 0.4 mg Tiotropium [place] (Spiriva Handihaler) 18 mcg INH DAILY [facility] - Exam Quality Assessment: Supplemental Oxygen General: Alert, Oriented, Cooperative Lungs: Normal Respiratory Effort, Decreased Breath Sounds, Wheezing (occasional) Cardiovascular: Regular Rate, Regular Rhythm GI/Abdominal Exam: Normal Bowel Sounds, Soft, Non-Tender Extremities: No Pedal Edema - Problem List & Annotations (1) COPD, Moderate chronic obstructive pulmonary disease SNOMED Code(s): 940300867 Code(s): J44.9 - CHRONIC OBSTRUCTIVE PULMONARY DISEASE, UNSPECIFIED Status : Acute Priority: Medium Current Visit: Yes Onset Date: 11/12/14 Annotation/Comment:: continue present therapy (2) Palliative care status SNOMED Code(s): 225759650 Code(s): Z51.5 - ENCOUNTER FOR PALLIATIVE CARE Status: Resolved Current Visit: Yes (3) Chest pain SNOMED Code(s): 49991543 Code(s): R07.9 - CHEST PAIN, UNSPECIFIED Status: Resolved Current Visit: Yes Onset Date: 03/27/19 Qualifiers: Chest pain type: precordial pain Qualified Code(s): R07.2 - Precordial pain - Problem List Review Problem List Initiated/Reviewed/Updated: Yes - My Orders Last 24 Hours: My Active Orders 03/27/19 12:45 EKG Documentation Completion [RC] ASDIRECTED EKG 12 Lead [EK] Stat 03/27/19 12:57 RT Aerosol Therapy [RC] ASDIRECTED Nitroglycerin [Nitrostat] 0.4 mg SL Q5M PRN 03/27/19 13:07 Acetylcysteine [Mucomyst 20%] 1 mg NEB ONETIME PRN guaiFENesin [Mucinex] 600 mg PO BID PRN 03/27/19 13:13 Levalbuterol HCl [Xopenex] 1.25 mg NEB Q8H PRN 03/27/19 13:14 RT Aerosol Therapy [RC] ASDIRECTED 03/27/19 16:45 Communication Order [RC] Q1HWA 03/27/19 21:00 methylPREDNISolone Sod Succ [Solu-MEDROL] 40 mg IVPUSH BID@0900,2100 - Plan Plan:: 1. Patient improved today, will continue present cares with no changes 2. director construction services tomorrow for correction placement 3. Decrease his SoluMedrol tomorrow to 40 mg daily then switch to orals to continue to taper.
[2019-03-28] MEDS: cefTRIAXone 1 GM Vial IV SCH (11:17)
[2019-03-28] MEDS: Azithromycin 500 MG in Sodium Chloride 0.9% 250 ML IV SCH (11:28)
[2019-03-28] MEDS: Sodium Chloride 0.9% 10 ML Syringe FLUSH PRN (20:08)
[2019-03-28] MEDS: Temazepam 15 MG Cap PO SCH (20:09)
[2019-03-29] MEDS: Formoterol/Mometasone 100-5 MCG 8.8 GM Inhaler IH SCH (06:29)
[2019-03-29] MEDS: Levalbuterol HCl 1.25 MG/3 ML Neb NEB PRN (06:29)
[2019-03-29 08:19] VITALS: BP 118/62; PULSE 70
[2019-03-29] MEDS: Clotrimazole 1% Crm 30 GM Tube TOP SCH (09:06)
[2019-03-29] MEDS: Finasteride 5 MG Tab PO SCH (09:06)
[2019-03-29] MEDS: Tamsulosin 0.4 MG Cap.ER PO SCH (09:07)
[2019-03-29] MEDS: Furosemide 40 MG Tab PO SCH (09:07)
[2019-03-29] MEDS: Tiotropium Inhaler 18 MCG Inhalation Powder Cap Kit of 5 INH SCH (09:08)
[2019-03-29] MEDS: Sertraline 100 MG Tab PO SCH (09:08)
[2019-03-29] MEDS: methylPREDNISolone Sodium Succinate 40 MG/1 ML SDV IVPUSH SCH (09:13)
[2019-03-29] MEDS: Enoxaparin 30 MG/0.3 ML Syringe SUBCUT SCH (09:13)
[2019-03-29] MEDS: cefTRIAXone 1 GM Vial IV SCH (09:14)
[2019-03-29] MEDS: Sodium Chloride 0.9% 10 ML Syringe FLUSH PRN (09:19)
[2019-03-29] MEDS: Azithromycin 500 MG in Sodium Chloride 0.9% 250 ML IV SCH (10:08)
--- NOTE | 2019-03-29 11:35 | PCM.DCSUM1 ---
Discharge Summary - Hospital Course HPI Initial Comments: This is an 88-year-old male patient is a resident of [facility] with a long -standing history of COPD. He is having frequent falls and worsening shortness of breath. He says he has a cough with white cabral sputum. He does have a cough is never productive. He denies fevers, chills. States his low nasal congestion or sore throat. He was seen in the clinic by Sandy Clay nurse practitioner said to the ER for possible admission. He denies chest pain, wheezing, fevers, chills. Diagnosis: Stroke: No - Discharge Data Discharge Date: 03/29/19 Discharge Disposition: DC/Tfer W/I Hosp To Swing 61 Condition: Fair - Discharge Diagnosis/Problem(s) (1) COPD, Moderate chronic obstructive pulmonary disease SNOMED Code(s): 937661975 ICD Code: J44.9 - CHRONIC OBSTRUCTIVE PULMONARY DISEASE, UNSPECIFIED Status : Acute Priority: Medium Onset Date: 11/12/14 Problem Details: continue present therapy (2) Palliative care status SNOMED Code(s): 709281483 ICD Code: Z51.5 - ENCOUNTER FOR PALLIATIVE CARE Status: Resolved (3) Chest pain SNOMED Code(s): 65207331 ICD Code: R07.9 - CHEST PAIN, UNSPECIFIED Status: Resolved Onset Date: Qualifiers: Chest pain type: precordial pain Qualified Code(s): R07.2 - Precordial pain - Patient Summary/Data Consults: Consultations 03/25/19 09:31 Consult to Occupational Therapy [OT Evaluation and Treatment] [CONS] Routine Please Evaluate and Treat. OT Reason for Consult: Strengthening This query below is only for informational purposes and is not editable. Admission Diagnosis/Problem: COPD, Severe chronic obstructive pulmonary disease Consult to Physical Therapy [PT Evaluation and Treatment] [CONS] Routine Please Evaluate and Treat. PT Reason for Consult: Strengthening This query below is only for informational purposes and is not editable. Admission Diagnosis/Problem: COPD, Severe chronic obstructive pulmonary disease 03/29/19 07:00 Consult to Case Management/Veterinary Practitioner [CONS] Routine Comment: Physician Instructions: patient & family would like to pursue NH placement Service(s) to be Consulted: Veterinary Practitioner Reason for Consult: [facility] placement Case Management Specialty/Veterinary Practitioner: Sales Agent Insurance Special Instructions: Hospital Course: Patient was started on Rocephin & Azithromycin 03/25, day 4 of antibiotics today , Solumedrol changed from 125 mg down to 40 mg bid. Developed chest pain on Friday, sinus tachycardia, reported that chest pain started after his nebulized treatment. Reviewed medications and discontinued DuoNeb scheduled and as needed and started Xopenex nebs as needed. started Mucinex 600 mg bid, and flutter valve to mobilize mucus. He has been improving but PT/OT recommended swing bed placement to improve deconditioning and function. Social work is working on discharge placement if he can go back to [facility] with increased services or [facility]ci placement. Suspected UTI on admission, urine culture has showed no growth. - Patient Instructions Diet: Regular Diet as Tolerated - Discharge Plan *PRESCRIPTION DRUG MONITORING PROGRAM REVIEWED*: Not Applicable *COPY OF PRESCRIPTION DRUG MONITORING REPORT IN PATIENT BRIANNA: Not Applicable Home Medications: Home Meds Budesonide/Formoterol [Symbicort 80-4.5 MCG] 2 puff INH BID 02/24/18 [History] Dextran 70/Hypromellose [Artificial Tears] 1 - 2 drop EYEBOTH TID 02/24/18 [ History] Finasteride 5 mg PO DAILY 02/24/18 [History] Naproxen Sodium [Aleve] 440 mg PO BID PRN 02/24/18 [History] Sertraline [Zoloft] 200 mg PO DAILY 02/24/18 [History] Tamsulosin [Flomax] 0.4 mg PO DAILY 02/24/18 [History] Temazepam 15 mg PO BEDTIME 02/24/18 [History] Albuterol/Ipratropium [DuoNeb 3.0-0.5 MG/3 ML] 3 ml IH Q4H PRN 03/02/19 [History ] Albuterol/Ipratropium [DuoNeb 3.0-0.5 MG/3 ML] 3 ml IH TID 03/02/19 [History] Furosemide 40 mg PO DAILY 03/02/19 [History] Tiotropium [place] [Spiriva Respimat] 2 puff IH DAILY 03/02/19 [History] Oxygen Therapy Mode: Nasal Cannula Oxygen Flow Rate (L/min): 2 Maintain SPO2% less than: 94 Maintain SpO2% greater than: 88 - Discharge Summary/Plan Comment DC Time >30 min.: No - Patient Data Vitals - Most Recent: Last Vital Signs Temp 36.5 C 03/29/19 08:00 Pulse 70 03/29/19 08:00 Resp 18 03/29/19 08:00 BP 118/62 03/29/19 08:00 Pulse Ox 94 L 03/29/19 08:00 Weight - Most Recent: 76.34 kg I&O - Last 24 hours: Intake & Output 03/28/19 03/29/19 03/29/19 22:59 06:59 14:59 Output Total 150 Balance -150 EDDA Results - Last 24 hrs: Microbiology 03/24/19 17:45 Aerobic Blood Culture - Preliminary Blood NO GROWTH AFTER 4 DAYS Anaerobic Blood Culture - Preliminary NO GROWTH AFTER 4 DAYS Med Orders - Current: Current Medications Acetylcysteine (Mucomyst 20%) 1 mg NEB ONETIME PRN PRN Reason: Other Ceftriaxone Sodium (Rocephin) 1 gm IV Q24H [facility] Last Admin: 03/29/19 09:14 Dose: 1 gm Clotrimazole (Lotrimin Af 1% Crm) 0 gm TOP BID [facility] Last Admin: 03/29/19 09:06 Dose: 1 applic Enoxaparin Sodium (Lovenox) 30 mg SUBCUT Q24H [facility] Last Admin: 03/29/19 09:13 Dose: 30 mg Finasteride (Proscar) 5 mg PO DAILY [facility] Last Admin: 03/29/19 09:06 Dose: 5 mg Furosemide (Lasix) 40 mg PO DAILY [facility] Last Admin: 03/29/19 09:07 Dose: 40 mg Guaifenesin (Mucinex) 600 mg PO BID PRN PRN Reason: Cough Last Admin: 03/27/19 20:54 Dose: 600 mg Azithromycin 500 mg/ Sodium (Chloride) 250 mls @ 250 mls/hr IV Q24H [facility] Last Admin: 03/29/19 10:08 Dose: 250 mls/hr Levalbuterol HCl (Xopenex) 1.25 mg NEB Q8H PRN PRN Reason: Wheezing Last Admin: 03/29/19 06:29 Dose: 1.25 mg Methylprednisolone Sodium Succinate (Solu-Medrol) 40 mg IVPUSH BID@0900,2100 [facility] Last Admin: 03/29/19 09:13 Dose: 40 mg Mometasone Furoate/Formoterol Fumar (Dulera 100-5 Mcg) 2 puff IH BIDRT [facility] Last Admin: 03/29/19 06:29 Dose: 2 puff Naproxen (Naproxen Sodium) 440 mg PO BID PRN PRN Reason: MODERATE PAIN Nitroglycerin (Nitrostat) 0.4 mg SL Q5M PRN PRN Reason: Chest Pain Sertraline HCl (Zoloft) 200 mg PO DAILY [facility] Last Admin: 03/29/19 09:08 Dose: 200 mg Sodium Chloride (Saline Flush) 10 ml FLUSH ASDIRECTED PRN PRN Reason: Flush Last Admin: 03/29/19 09:19 Dose: 10 ml Tamsulosin HCl (Flomax) 0.4 mg PO DAILY [facility] Last Admin: 03/29/19 09:07 Dose: 0.4 mg Temazepam (Restoril) 15 mg PO BEDTIME [facility] Last Admin: 03/28/19 20:09 Dose: 15 mg Tiotropium [place] (Spiriva Handihaler) 18 mcg INH DAILY [facility] Last Admin: 03/29/19 09:08 Dose: 18 mcg Discontinued Medications Acetylcysteine (Mucomyst 20%) 1 mg NEB ONETIME ONE Stop: 03/27/19 12:57 Last Admin: 03/27/19 15:28 Dose: Not Given Albuterol/Ipratropium (Duoneb 3.0-0.5 Mg/3 Ml) 3 ml NEB ONETIME ONE Stop: 03/24/19 17:45 Last Admin: 03/24/19 18:20 Dose: 3 ml Albuterol/Ipratropium (Duoneb 3.0-0.5 Mg/3 Ml) 3 ml NEB Q2H PRN PRN Reason: Wheezing Last Admin: 03/25/19 05:41 Dose: 3 ml Albuterol/Ipratropium (Duoneb 3.0-0.5 Mg/3 Ml) 3 ml NEB QIDRT [facility] Last Admin: 03/27/19 10:19 Dose: 3 ml Albuterol/Ipratropium (Duoneb 3.0-0.5 Mg/3 Ml) 3 ml NEB Q2H PRN PRN Reason: SHORTNESS OF BREATH Cefazolin Sodium (Ancef) 1 gm IVPUSH Q8H [facility] Last Admin: 03/24/19 21:28 Dose: 1 gm Cefazolin Sodium (Ancef) Confirm Administered Dose 1 gm .ROUTE .STK-MED ONE Stop: 03/24/19 21:24 Last Admin: 03/24/19 22:13 Dose: Not Given Cefazolin Sodium (Ancef) Confirm Administered Dose 1 gm .ROUTE .STK-MED ONE Stop: 03/25/19 04:04 Last Admin: 03/25/19 05:00 Dose: 1 gm Cefazolin Sodium (Ancef) 1 gm IVPUSH Q8H [facility] Clotrimazole (Lotrimin Af 1% Crm) 0 gm TOP BID [facility] Last Admin: 03/25/19 22:00 Dose: 1 applic Guaifenesin (Mucinex) 600 mg PO BID [facility] Last Admin: 03/27/19 13:23 Dose: Not Given Sodium Chloride (Normal Saline) 1,000 mls @ 150 mls/hr IV ASDIRECTED [facility] Last Admin: 03/25/19 08:59 Dose: 150 mls/hr Cefazolin Sodium 1 gm/ Sodium (Chloride) 50 mls @ 100 mls/hr IV Q8H [facility] Last Admin: 03/25/19 05:00 Dose: 100 mls/hr Nitroglycerin/Dextrose (Nitroglycerin 25 Mg/D5w 250 Ml) Confirm Administered Dose 25 mg in 250 mls @ as directed .ROUTE .STK-MED ONE Stop: 03/27/19 12:53 Last Admin: 03/27/19 15:28 Dose: Not Given Methylprednisolone Sodium Succinate (Solu-Medrol) 125 mg IVPUSH ONETIME ONE Stop: 03/24/19 18:57 Last Admin: 03/24/19 19:16 Dose: 125 mg Methylprednisolone Sodium Succinate (Solu-Medrol) 40 mg IVPUSH DAILY [facility] Last Admin: 03/27/19 08:52 Dose: 40 mg Methylprednisolone Sodium Succinate (Solu-Medrol) 40 mg IVPUSH Q12H [facility] Last Admin: 03/27/19 13:26 Dose: Not Given Nitroglycerin (Nitrostat) Confirm Administered Dose 0.4 mg .ROUTE .STK-MED ONE Stop: 03/27/19 12:53 Last Admin: 03/27/19 12:51 Dose: 0.4 mg Tiotropium [place] (Spiriva Handihaler) 18 mcg INH DAILY [facility] - Exam Quality Assessment: Reports: Supplemental Oxygen General: Reports: Alert, Oriented Lungs: Reports: Decreased Breath Sounds, Wheezing Cardiovascular: Reports: Regular Rate GI/Abdominal Exam: Normal Bowel Sounds, Soft, Non-Tender
== END 2019-03-29 11:37 | disposition swing bed (61) | DRG 192 ==
LOC: FB.ED 16:38 → FB.MS 18:05 → UNDOADMIN 18:05 → FB.MS 19:46 → UNDODISIN 03-29 11:37
PROVIDERS: ADMIT Family Medicine; ATTEND Family Medicine
DX: J44.1 Chronic obstructive pulmonary disease with (acute) exacerbation (principal); Z51.5 Encounter for palliative care; J84.10 Pulmonary fibrosis, unspecified; R82.90 Unspecified abnormal findings in urine; R29.6 Repeated falls; R06.02 Shortness of breath; R53.1 Weakness; Z99.81 Dependence on supplemental oxygen; R07.2 Precordial pain; I73.9 Peripheral vascular disease, unspecified; R68.3 Clubbing of fingers; Z86.73 Personal history of transient ischemic attack (TIA), and cerebral infarction without residual deficits; H54.7 Unspecified visual loss; H91.90 Unspecified hearing loss, unspecified ear; Z88.1 Allergy status to other antibiotic agents; Z88.5 Allergy status to narcotic agent; Z88.8 Allergy status to other drugs, medicaments and biological substances; Z79.52 Long term (current) use of systemic steroids; Z89.021 Acquired absence of right finger(s)
CPT/HCPCS: 36415; 71046; 80048; 81001; 83605; 84484; 85025; 85027; 86140; 87040; 87086; 93005; 94640; 96374; 97110-GO; 97110-GP; 97161-GP; 97165-GO; 97530-GO; 97530-GP; 97535-GO; 99285; 99285-25; A9270-GY; J0456; J0690; J0696; J1650; J2920; J2930; J7030; J7050; J7612-GY; J7620-GY

== ENCOUNTER 2019-03-29 11:38 | Inpatient (IN) | payer MEDICARE, BC ==
[2019-03-29] MEDS ORDERED: Nitroglycerin 0.4 MG Tab.SL SL PRN (11:49)
[2019-03-29] MEDS ORDERED: guaiFENesin 600 MG Tab.ER PO PRN (11:49)
[2019-03-29] MEDS ORDERED: Bisacodyl 5 MG Tab PO PRN (11:53)
[2019-03-29] MEDS ORDERED: Magnesium Hydroxide 400 MG/5 ML Susp 30 ML Cup PO PRN (11:53)
--- NOTE | 2019-03-29 11:56 | PCM.HP ---
H&P History of Present Illness - General Date of Service: 03/29/19 Admit Problem/Dx: Admission Diagnosis/Problem Admission Diagnosis/Problem COPD, Severe chronic obstructive pulmonary disease Source of Information: Old Records, Provider - History of Present Illness Initial Comments - Free Text/Narative: Patient was transferred to swing bed for continued antibiotic treatment and PT/ OT for strengthening. He had episode of chest pain on Friday which resolved. EKG and troponin were negative. Discontinued DuoNeb scheduled & as needed and started on Xopenex nebs as needed along with his Dulera & Tiotropium. Day 5 of Azithromycin & Rocephin today. He has improvement of his shortness of breath and wheezing, had more secretions on Friday but less productive cough today. No fevers, chills, chest pain or abdominal pain. No nausea or vomiting. Has not had a bowel movement since admission. - Related Data Allergies/Adverse Reactions: Allergies Allergy/AdvReac Type Severity Reaction Status Date / Time cephalexin monohydrate Allergy Vomiting Verified 03/24/19 19:42 [From Keflex] morphine Allergy Confusion Verified 03/24/19 19:42 amoxicillin trihydrate AdvReac Nausea and Verified 03/24/19 19:42 [From Augmentin] Vomiting codeine AdvReac Nausea and Verified 03/24/19 19:42 Vomiting hydrocodone AdvReac Nausea and Verified 03/24/19 19:42 Vomiting potassium clavulanate AdvReac Nausea and Verified 03/24/19 19:42 [From Augmentin] Vomiting simvastatin AdvReac Muscle Verified 03/24/19 19:42 Aches Home Medications: Home Meds Budesonide/Formoterol [Symbicort 80-4.5 MCG] 2 puff INH BID 02/24/18 [History] Dextran 70/Hypromellose [Artificial Tears] 1 - 2 drop EYEBOTH TID 02/24/18 [ History] Finasteride 5 mg PO DAILY 02/24/18 [History] Naproxen Sodium [Aleve] 440 mg PO BID PRN 02/24/18 [History] Sertraline [Zoloft] 200 mg PO DAILY 02/24/18 [History] Tamsulosin [Flomax] 0.4 mg PO DAILY 02/24/18 [History] Temazepam 15 mg PO BEDTIME 02/24/18 [History] Albuterol/Ipratropium [DuoNeb 3.0-0.5 MG/3 ML] 3 ml IH Q4H PRN 03/02/19 [History ] Albuterol/Ipratropium [DuoNeb 3.0-0.5 MG/3 ML] 3 ml IH TID 03/02/19 [History] Furosemide 40 mg PO DAILY 03/02/19 [History] Tiotropium [place] [Spiriva Respimat] 2 puff IH DAILY 03/02/19 [History] Past Medical History HEENT History: Reports: Cataract, Hard of Hearing, Impaired Vision Cardiovascular History: Reports: PVD Respiratory History: Reports: Bronchitis, Recurrent, COPD, Pulmonary Fibrosis ( On oxygen chronically 07/04) Genitourinary History: Reports: Other (See Below) Other Genitourinary History: has to get up a lot Neurological History: Reports: CVA - Infectious Disease History Infectious Disease History: Reports: None - Past Surgical History HEENT Surgical History: Reports: Cataract Surgery GI Surgical History: Reports: Hernia, Inguinal (Right) Neurological Surgical History: Reports: Lumbar Spine Musculoskeletal Surgical History: 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 ) Social & Family History - Family History Family Medical History: Noncontributory - Caffeine Use Caffeine Use: Reports: Coffee Other Caffeine Use: 2 cups a day - Living Situation & Occupation Living situation: Reports: Occupation: Retired H&P Review of Systems - Review of Systems: Review Of Systems: See Below General: Reports: Weakness. Denies: Fever, Chills Pulmonary: Reports: Shortness of Breath, Wheezing Cardiovascular: Denies: Chest Pain Gastrointestinal: Reports: Constipation. Denies: Abdominal Pain, Diarrhea, Nausea, Vomiting Skin: Reports: No Symptoms Psychiatric: Reports: No Symptoms Exam - Exam Exam: See Below - Exam Quality Assessment: Supplemental Oxygen General: Alert, Oriented, Cooperative Lungs: Normal Respiratory Effort, Wheezing Cardiovascular: Regular Rate, Regular Rhythm GI/Abdominal Exam: Normal Bowel Sounds, Soft, Non-Tender Extremities: No Pedal Edema Skin: Warm, Dry, Intact - Problem List (1) Bronchitis SNOMED Code(s): 19369044 ICD Code: J40 - BRONCHITIS, NOT SPECIFIED ACUTE OR CHRONIC Status: Acute Priority: Medium Current Visit: No Onset Date: 11/12/14 Problem Details: cipro 500 BID (2) COLD, Chronic obstructive lung disease SNOMED Code(s): 47496646 ICD Code: J44.9 - CHRONIC OBSTRUCTIVE PULMONARY DISEASE, UNSPECIFIED Status : Chronic Current Visit: No (3) Fall SNOMED Code(s): 7224957, 616515320 ICD Code: W19.XXXA - UNSPECIFIED FALL, INITIAL ENCOUNTER Status: Acute Current Visit: No (4) H/O CHF SNOMED Code(s): 509282445 ICD Code: Z86.79 - PERSONAL HISTORY OF OTHER DISEASES OF THE CIRCULATORY SYSTEM Status: Acute Current Visit: No (5) H/O: CVA (cerebrovascular accident) SNOMED Code(s): 238367359 ICD Code: Z86.73 - PRSNL HX OF TIA (TIA), AND CEREB INFRC W/O RESID DEFICITS Status: Acute Current Visit: No Problem List Initiated/Reviewed/Updated: Yes Orders Last 24hrs: Active Orders 24 hr Category Date Time Status Patient Status [ADT] Routine ADT 03/29/19 11:49 Ordered Communication Order [RC] Q1HWA Care 03/29/19 11:49 Ordered Oxygen Therapy [RC] PRN Care 03/29/19 11:49 Ordered RT Aerosol Therapy [RC] ASDIRECTED Care 03/29/19 11:49 Ordered RT Aerosol Therapy [RC] ASDIRECTED Care 03/29/19 11:49 Ordered RT Aerosol Therapy [RC] ASDIRECTED Care 03/29/19 11:49 Ordered RT Aerosol Therapy [RC] ASDIRECTED Care 03/29/19 11:50 Ordered RT Post Treatment Assessment [RC] Click to Edit Care 03/29/19 11:49 Ordered Up With Assistance [RC] ASDIRECTED Care 03/29/19 11:49 Ordered VTE/DVT Education [RC] Per Unit Routine Care 03/29/19 11:49 Ordered Vital Signs [RC] Q4H Care 03/29/19 11:49 Ordered Consult to Case Management/Debubblizer [CONS] Cons 03/29/19 11:49 Ordered Routine Consult to Occupational Therapy [OT Evaluation and Cons 03/29/19 11:49 Ordered Treatment] [CONS] Routine Consult to Physical Therapy [PT Evaluation and Cons 03/29/19 11:49 Ordered Treatment] [CONS] Routine Regular Diet [DIET] Diet 03/29/19 Dinner Ordered Bisacodyl [Dulcolax] Med 03/29/19 11:53 Ordered 5 mg PO DAILY PRN Clotrimazole [Lotrimin AF 1% Crm] Med 03/29/19 21:00 Ordered 0 gm TOP BID Enoxaparin [Lovenox] Med 03/30/19 10:00 Ordered 30 mg SUBCUT Q24H Finasteride [Proscar] Med 03/30/19 09:00 Ordered 5 mg PO DAILY Furosemide [Lasix] Med 03/30/19 09:00 Ordered 40 mg PO DAILY Levalbuterol HCl [Xopenex] Med 03/29/19 11:49 Ordered 1.25 mg NEB Q8H PRN Magnesium Hydroxide [Milk of Magnesia] Med 03/29/19 11:53 Ordered 30 ml PO Q6H PRN Naproxen Sodium Med 03/29/19 11:49 Ordered 440 mg PO BID PRN Nitroglycerin [Nitrostat] Med 03/29/19 11:49 Ordered 0.4 mg SL Q5M PRN Polyethylene Glycol 3350 [MiraLAX] Med 03/29/19 12:00 Ordered 17 gm PO DAILY Sertraline [Zoloft] Med 03/30/19 09:00 Ordered 200 mg PO DAILY Sodium Chloride 0.9% [Saline Flush] Med 03/29/19 11:49 Ordered 10 ml FLUSH ASDIRECTED PRN Tamsulosin [Flomax] Med 03/30/19 09:00 Ordered 0.4 mg PO DAILY Temazepam [Restoril] Med 03/29/19 21:00 Ordered 15 mg PO BEDTIME Tiotropium [Spiriva HandiHaler] Med 03/30/19 09:00 Ordered 18 mcg INH DAILY cefTRIAXone [Rocephin] Med 03/30/19 10:00 Ordered 1 gm IV Q24H guaiFENesin [Mucinex] Med 03/29/19 11:49 Ordered 600 mg PO BID PRN predniSONE Med 03/29/19 12:00 Ordered 40 mg PO .Daily Taper Code Status [Resuscitation Status] Routine Resus Stat 03/29/19 11:55 Ordered Medication Orders Bisacodyl (Dulcolax) 5 mg PO DAILY PRN PRN Reason: Constipation Ceftriaxone Sodium (Rocephin) 1 gm IV Q24H [facility] Clotrimazole (Lotrimin Af 1% Crm) 0 gm TOP BID [facility] Enoxaparin Sodium (Lovenox) 30 mg SUBCUT Q24H [facility] Finasteride (Proscar) 5 mg PO DAILY [facility] Furosemide (Lasix) 40 mg PO DAILY [facility] Guaifenesin (Mucinex) 600 mg PO BID PRN PRN Reason: Cough Levalbuterol HCl (Xopenex) 1.25 mg NEB Q8H PRN PRN Reason: Wheezing Magnesium Hydroxide (Milk Of Magnesia) 30 ml PO Q6H PRN PRN Reason: Constipation Naproxen (Naproxen Sodium) 440 mg PO BID PRN PRN Reason: MODERATE PAIN Nitroglycerin (Nitrostat) 0.4 mg SL Q5M PRN PRN Reason: Chest Pain Polyethylene Glycol (Miralax) 17 gm PO DAILY [facility] Prednisone (Prednisone) 40 mg PO .Daily Taper [facility] Sertraline HCl (Zoloft) 200 mg PO DAILY [facility] Sodium Chloride (Saline Flush) 10 ml FLUSH ASDIRECTED PRN PRN Reason: Flush Tamsulosin HCl (Flomax) 0.4 mg PO DAILY [facility] Temazepam (Restoril) 15 mg PO BEDTIME [facility] Tiotropium [place] (Spiriva Handihaler) 18 mcg INH DAILY [facility] Assessment/Plan Comment:: 1. Transfer to swing bed for continued antibiotics and PT/OT. 2. Social work checking into [facility]'s available services, [facility]. Care conference on Weds at 1pm. 3. Discontinue Azithromycin today, continue Rocephin tomorrow and possible change to oral medications possibly Weds. 4. Continue home medications from inpatient stay. 5. Add Probiotics & MiraLAX daily, Milk of Magnesia daily as needed, Dulcolax daily as needed for Constipation, monitor for loose stools. 6. Switch to oral Prednisone, taper per pharmacy.
[2019-03-29] MEDS ORDERED: predniSONE 10 MG Tab PO SCH (12:00)
[2019-03-29] MEDS ORDERED: predniSONE 20 MG Tab PO ONE (13:00)
[2019-03-29] MEDS: Polyethylene Glycol 3350 Powder 17 GM Packet PO SCH (13:37)
[2019-03-29] MEDS: Levalbuterol HCl 1.25 MG/3 ML Neb NEB PRN ×2 (13:38→20:13)
[2019-03-29] MEDS: Saccharomyces Boulardii (Probiotic) 250 MG Cap PO SCH ×2 (16:09→20:11)
[2019-03-29] MEDS: Formoterol/Mometasone 100-5 MCG 8.8 GM Inhaler IH SCH (20:11)
[2019-03-29] MEDS: Clotrimazole 1% Crm 30 GM Tube TOP SCH (20:12)
[2019-03-29] MEDS: Temazepam 15 MG Cap PO SCH (20:12)
[2019-03-30] MEDS: Formoterol/Mometasone 100-5 MCG 8.8 GM Inhaler IH SCH ×2 (07:07→20:38)
[2019-03-30] MEDS: Polyethylene Glycol 3350 Powder 17 GM Packet PO SCH (08:54)
[2019-03-30] MEDS: Tiotropium Inhaler 18 MCG Inhalation Powder Cap Kit of 5 INH SCH (08:54)
[2019-03-30] MEDS: predniSONE 10 MG Tab PO SCH (08:54)
[2019-03-30] MEDS: Finasteride 5 MG Tab PO SCH (08:55)
[2019-03-30] MEDS: Clotrimazole 1% Crm 30 GM Tube TOP SCH ×2 (08:55→20:41)
[2019-03-30] MEDS: Furosemide 40 MG Tab PO SCH (08:55)
[2019-03-30] MEDS: Saccharomyces Boulardii (Probiotic) 250 MG Cap PO SCH ×2 (08:55→20:39)
[2019-03-30] MEDS: Sertraline 100 MG Tab PO SCH (08:55)
[2019-03-30] MEDS: Tamsulosin 0.4 MG Cap.ER PO SCH (08:56)
[2019-03-30] MEDS: Sodium Chloride 0.9% 10 ML Syringe FLUSH PRN (09:01)
[2019-03-30] MEDS: cefTRIAXone 1 GM Vial IVPUSH SCH (09:01)
[2019-03-30] MEDS: Enoxaparin 30 MG/0.3 ML Syringe SUBCUT SCH (09:02)
[2019-03-30] MEDS: Temazepam 15 MG Cap PO SCH (20:57)
[2019-03-31] MEDS: Formoterol/Mometasone 100-5 MCG 8.8 GM Inhaler IH SCH ×2 (06:46→20:30)
[2019-03-31] MEDS: Tamsulosin 0.4 MG Cap.ER PO SCH (09:50)
[2019-03-31] MEDS: predniSONE 10 MG Tab PO SCH (09:50)
[2019-03-31] MEDS: Saccharomyces Boulardii (Probiotic) 250 MG Cap PO SCH ×2 (09:50→20:30)
[2019-03-31] MEDS: Furosemide 40 MG Tab PO SCH (09:50)
[2019-03-31] MEDS: Sertraline 100 MG Tab PO SCH (09:51)
[2019-03-31] MEDS: Finasteride 5 MG Tab PO SCH (09:51)
[2019-03-31] MEDS: Polyethylene Glycol 3350 Powder 17 GM Packet PO SCH (09:53)
[2019-03-31] MEDS: Tiotropium Inhaler 18 MCG Inhalation Powder Cap Kit of 5 INH SCH (09:54)
[2019-03-31] MEDS: Clotrimazole 1% Crm 30 GM Tube TOP SCH ×2 (09:54→20:30)
[2019-03-31] MEDS: Sodium Chloride 0.9% 10 ML Syringe FLUSH PRN ×2 (10:20→10:37)
[2019-03-31] MEDS: cefTRIAXone 1 GM Vial IVPUSH SCH (10:31)
[2019-03-31] MEDS: Enoxaparin 30 MG/0.3 ML Syringe SUBCUT SCH (10:38)
[2019-03-31] MEDS: Temazepam 15 MG Cap PO SCH (20:34)
[2019-04-01] MEDS: Formoterol/Mometasone 100-5 MCG 8.8 GM Inhaler IH SCH ×2 (06:31→20:50)
[2019-04-01] MEDS: Finasteride 5 MG Tab PO SCH (09:13)
[2019-04-01] MEDS: Tamsulosin 0.4 MG Cap.ER PO SCH (09:13)
[2019-04-01] MEDS: Saccharomyces Boulardii (Probiotic) 250 MG Cap PO SCH ×2 (09:13→20:50)
[2019-04-01] MEDS: Furosemide 40 MG Tab PO SCH (09:13)
[2019-04-01] MEDS: predniSONE 10 MG Tab PO SCH (09:14)
[2019-04-01] MEDS: Sertraline 100 MG Tab PO SCH (09:14)
[2019-04-01] MEDS: Polyethylene Glycol 3350 Powder 17 GM Packet PO SCH (09:14)
[2019-04-01] MEDS: Clotrimazole 1% Crm 30 GM Tube TOP SCH ×2 (09:14→20:50)
[2019-04-01] MEDS: Tiotropium Inhaler 18 MCG Inhalation Powder Cap Kit of 5 INH SCH (09:15)
[2019-04-01] MEDS: Enoxaparin 30 MG/0.3 ML Syringe SUBCUT SCH (09:21)
[2019-04-01] MEDS: Sodium Chloride 0.9% 10 ML Syringe FLUSH PRN (10:09)
[2019-04-01] MEDS: Temazepam 15 MG Cap PO SCH (20:50)
[2019-04-02] MEDS: Formoterol/Mometasone 100-5 MCG 8.8 GM Inhaler IH SCH ×2 (06:28→20:30)
[2019-04-02] MEDS: Sertraline 100 MG Tab PO SCH (08:32)
[2019-04-02] MEDS: Tamsulosin 0.4 MG Cap.ER PO SCH (08:32)
[2019-04-02] MEDS: Finasteride 5 MG Tab PO SCH (08:32)
[2019-04-02] MEDS: Furosemide 40 MG Tab PO SCH (08:32)
[2019-04-02] MEDS: Polyethylene Glycol 3350 Powder 17 GM Packet PO SCH (08:32)
[2019-04-02] MEDS: Clotrimazole 1% Crm 30 GM Tube TOP SCH ×2 (08:32→20:30)
[2019-04-02] MEDS: Tiotropium Inhaler 18 MCG Inhalation Powder Cap Kit of 5 INH SCH (08:32)
[2019-04-02] MEDS: predniSONE 10 MG Tab PO SCH (08:32)
[2019-04-02] MEDS: Saccharomyces Boulardii (Probiotic) 250 MG Cap PO SCH ×2 (08:32→20:30)
[2019-04-02] MEDS: Enoxaparin 30 MG/0.3 ML Syringe SUBCUT SCH (10:09)
[2019-04-02] MEDS: Temazepam 15 MG Cap PO SCH (20:31)
[2019-04-02] MEDS: Levalbuterol HCl 1.25 MG/3 ML Neb NEB PRN (20:33)
[2019-04-03] MEDS: Formoterol/Mometasone 100-5 MCG 8.8 GM Inhaler IH SCH ×2 (06:43→20:39)
[2019-04-03] MEDS: predniSONE 10 MG Tab PO SCH (08:53)
[2019-04-03] MEDS: Polyethylene Glycol 3350 Powder 17 GM Packet PO SCH (08:53)
[2019-04-03] MEDS: Tamsulosin 0.4 MG Cap.ER PO SCH (08:53)
[2019-04-03] MEDS: Saccharomyces Boulardii (Probiotic) 250 MG Cap PO SCH ×2 (08:53→20:38)
[2019-04-03] MEDS: Sertraline 100 MG Tab PO SCH (08:53)
[2019-04-03] MEDS: Finasteride 5 MG Tab PO SCH (08:53)
[2019-04-03] MEDS: Furosemide 40 MG Tab PO SCH (08:53)
[2019-04-03] MEDS: Tiotropium Inhaler 18 MCG Inhalation Powder Cap Kit of 5 INH SCH (08:59)
[2019-04-03] MEDS: Clotrimazole 1% Crm 30 GM Tube TOP SCH ×2 (09:02→20:38)
[2019-04-03] MEDS: Enoxaparin 30 MG/0.3 ML Syringe SUBCUT SCH (10:52)
[2019-04-03] MEDS: Temazepam 15 MG Cap PO SCH (20:38)
[2019-04-04] MEDS: Formoterol/Mometasone 100-5 MCG 8.8 GM Inhaler IH SCH ×2 (06:43→21:07)
[2019-04-04] MEDS: Clotrimazole 1% Crm 30 GM Tube TOP SCH ×2 (08:50→20:58)
[2019-04-04] MEDS: Tiotropium Inhaler 18 MCG Inhalation Powder Cap Kit of 5 INH SCH (08:52)
[2019-04-04] MEDS: Polyethylene Glycol 3350 Powder 17 GM Packet PO SCH (08:52)
[2019-04-04] MEDS: predniSONE 10 MG Tab PO SCH (08:52)
[2019-04-04] MEDS: Sertraline 100 MG Tab PO SCH (08:52)
[2019-04-04] MEDS: Tamsulosin 0.4 MG Cap.ER PO SCH (08:52)
[2019-04-04] MEDS: Furosemide 40 MG Tab PO SCH (08:52)
[2019-04-04] MEDS: Saccharomyces Boulardii (Probiotic) 250 MG Cap PO SCH ×2 (08:52→21:06)
[2019-04-04] MEDS: Finasteride 5 MG Tab PO SCH (08:52)
[2019-04-04] MEDS: Enoxaparin 30 MG/0.3 ML Syringe SUBCUT SCH (10:31)
[2019-04-04] MEDS: Temazepam 15 MG Cap PO SCH (21:06)
[2019-04-05] MEDS: Formoterol/Mometasone 100-5 MCG 8.8 GM Inhaler IH SCH (06:40)
[2019-04-05] MEDS: Finasteride 5 MG Tab PO SCH (08:37)
[2019-04-05] MEDS: Furosemide 40 MG Tab PO SCH (08:37)
[2019-04-05] MEDS: predniSONE 10 MG Tab PO SCH (08:37)
[2019-04-05] MEDS: Polyethylene Glycol 3350 Powder 17 GM Packet PO SCH (08:37)
[2019-04-05] MEDS: Saccharomyces Boulardii (Probiotic) 250 MG Cap PO SCH (08:38)
[2019-04-05] MEDS: Tamsulosin 0.4 MG Cap.ER PO SCH (08:38)
[2019-04-05] MEDS: Clotrimazole 1% Crm 30 GM Tube TOP SCH (08:38)
[2019-04-05] MEDS: Sertraline 100 MG Tab PO SCH (09:57)
[2019-04-05] MEDS: Enoxaparin 30 MG/0.3 ML Syringe SUBCUT SCH (09:57)
[2019-04-05] MEDS: Tiotropium Inhaler 18 MCG Inhalation Powder Cap Kit of 5 INH SCH (09:58)
[2019-04-05 10:25] VITALS: BP 141/68; PULSE 89
--- NOTE | 2019-04-06 03:24 | DISCH ---
DISCHARGE DATE: 04/05/2019 REASON FOR ADMISSION: 1. Debility. 2. COPD. 3. Frequent falls. 4. History of CHF. 5. History of CVA. BRIEF HISTORY AND HOSPITAL COURSE: This is an 89-year-old male who was admitted to swing bed for strengthening and to continue with antibiotic treatment for recent COPD exacerbation. He did well and is ready to go home today. I will discharge him on his previous prescriptions and a taper of steroid to complete 5 days for the taper. He will resume DuoNeb, Spiriva, and Symbicort that he previously took at home. I discontinued probiotics and MiraLAX and his p.r.n. Dulcolax. I spent more than 35 minutes in the discharge of the patient. /[id number] BRITTANI/ENDY
== END 2019-04-05 10:55 | DRG 192 ==
LOC: FB.MS 11:38
PROVIDERS: ADMIT Family Medicine; ATTEND Family Medicine
DX: J44.1 Chronic obstructive pulmonary disease with (acute) exacerbation (principal); Z79.2 Long term (current) use of antibiotics; Z99.81 Dependence on supplemental oxygen; R53.81 Other malaise; I50.9 Heart failure, unspecified; J84.10 Pulmonary fibrosis, unspecified; Z86.73 Personal history of transient ischemic attack (TIA), and cerebral infarction without residual deficits; I73.9 Peripheral vascular disease, unspecified; H91.90 Unspecified hearing loss, unspecified ear; H54.7 Unspecified visual loss; W19.XXXD Unspecified fall, subsequent encounter; Z88.1 Allergy status to other antibiotic agents; Z88.5 Allergy status to narcotic agent; Z88.8 Allergy status to other drugs, medicaments and biological substances
CPT/HCPCS: 94640; 97110-GO; 97110-GP; 97116-GP; 97530-GO; 97530-GP; 97535-GO; A9270-GY; J0696; J1650; J7612-GY

== ENCOUNTER 2019-08-17 00:58 | Emergency (ER) | payer MEDICARE, BC ==
--- NOTE | 2019-08-17 01:44 | EDM.PDOC ---
ED HPI GENERAL MEDICAL PROBLEM - General Stated Complaint: skin tear, fall Time Seen by Provider: 08/17/19 01:25 Source of Information: Reports: Patient History Limitations: Reports: No Limitations - History of Present Illness INITIAL COMMENTS - FREE TEXT/NARRATIVE: Patient presented to the ED because he tripped and fell. The is no obvious injury and doesn't complain of pain except for skin tear over the right antecubital area. There is no LOC after the fall. - Related Data Allergies Allergy/AdvReac Type Severity Reaction Status Date / Time cephalexin monohydrate Allergy Vomiting Verified 03/24/19 19:42 [From Keflex] morphine Allergy Confusion Verified 03/24/19 19:42 amoxicillin trihydrate AdvReac Nausea and Verified 03/24/19 19:42 [From Augmentin] Vomiting codeine AdvReac Nausea and Verified 03/24/19 19:42 Vomiting hydrocodone AdvReac Nausea and Verified 03/24/19 19:42 Vomiting potassium clavulanate AdvReac Nausea and Verified 03/24/19 19:42 [From Augmentin] Vomiting simvastatin AdvReac Muscle Verified 03/24/19 19:42 Aches Home Meds: Home Meds Budesonide/Formoterol [Symbicort 80-4.5 MCG] 2 puff INH BID 02/24/18 [History] Dextran 70/Hypromellose [Artificial Tears] 1 - 2 drop EYEBOTH TID 02/24/18 [ History] Finasteride 5 mg PO DAILY 02/24/18 [History] Naproxen Sodium [Aleve] 440 mg PO BID PRN 02/24/18 [History] Sertraline [Zoloft] 200 mg PO DAILY 02/24/18 [History] Tamsulosin [Flomax] 0.4 mg PO DAILY 02/24/18 [History] Temazepam 15 mg PO BEDTIME 02/24/18 [History] Albuterol/Ipratropium [DuoNeb 3.0-0.5 MG/3 ML] 3 ml IH Q4H PRN 03/02/19 [History ] Furosemide 40 mg PO DAILY 03/02/19 [History] Tiotropium [place] [Spiriva Respimat] 2 puff IH DAILY 03/02/19 [History] Clotrimazole [Lotrimin AF 1% Crm] 1 gm TOP BID #1 tube 04/05/19 [Rx] predniSONE 20 mg PO DAILY #3 tablet 04/05/19 [Rx] Past Medical History HEENT History: Reports: Cataract, Hard of Hearing, Impaired Vision Cardiovascular History: Reports: PVD Respiratory History: Reports: Bronchitis, Recurrent, COPD, Pulmonary Fibrosis ( On oxygen chronically 07/04) Genitourinary History: Reports: Other (See Below) Other Genitourinary History: has to get up a lot Neurological History: Reports: CVA Psychiatric History: Reports: Depression Hematologic History: Reports: None Immunologic History: Reports: None Oncologic (Cancer) History: Reports: None Dermatologic History: Reports: None - Infectious Disease History Infectious Disease History: Reports: None - Past Surgical History HEENT Surgical History: Reports: Cataract Surgery GI Surgical History: Reports: Hernia, Inguinal (Right) Neurological Surgical History: Reports: Lumbar Spine Musculoskeletal Surgical History: 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 ) Social & Family History - Family History Family Medical History: Noncontributory - Caffeine Use Caffeine Use: Reports: Coffee Other Caffeine Use: 2 cups a day - Living Situation & Occupation Living situation: Reports: Occupation: Retired ED ROS GENERAL - Review of Systems Review Of Systems: See Below Constitutional: Reports: No Symptoms HEENT: Reports: No Symptoms Respiratory: Reports: No Symptoms Cardiovascular: Reports: No Symptoms Endocrine: Reports: No Symptoms GI/Abdominal: Reports: No Symptoms : Reports: No Symptoms Musculoskeletal: Reports: No Symptoms Skin: Reports: Wound ED EXAM, SKIN/RASH Exam: See Below Exam Limited By: No Limitations General Appearance: Alert, WD/WN, No Apparent Distress Eye Exam: Bilateral Eye: PERRL Ears: Normal External Exam, Normal Canal, Hearing Grossly Normal, Normal TMs Nose: Normal Inspection, Normal Mucosa, No Blood Throat/Mouth: Normal Inspection, Normal Lips, Normal Teeth, Normal Gums Head: Atraumatic, Normocephalic Respiratory/Chest: No Respiratory Distress, Lungs Clear, Normal Breath Sounds Cardiovascular: Normal Peripheral Pulses, Regular Rate, Rhythm, No Edema, No Gallop, No JVD, No Murmur, No Rub GI/Abdominal: Normal Bowel Sounds, Soft, Non-Tender, No Organomegaly, No Distention, No Abnormal Bruit, No Mass Back Exam: Normal Inspection, Full Range of Motion Extremities: Normal Inspection, Normal Range of Motion, Non-Tender Neurological: Alert, Oriented, CN II-XII Intact, Normal Cognition, Normal Gait, Normal Reflexes Skin: Warm, Dry, Intact, Normal Color, No Rash, Other (4x7 cm skin tear right antecubital area) Course - Vital Signs Text/Narrative:: telfa, stri strips was applied by ED nurse He is UTD with his immunization Departure - Departure Time of Disposition: 01:45 Disposition: DC/Tfer to SNF 03 Condition: Good Clinical Impression: Skin tear, Fall - Discharge Information Instructions: Skin Tear Care, [id number], Fall Prevention in the Home, Adult , [id number] Referrals: Rc Felipe MD [Primary Care Provider] - Additional Instructions: please read discharge instructions on wound care change dressing every 3 days follow up with the wound nurse this week
[2019-08-17 01:55] VITALS: BP 110/61; PULSE 81
== END 2019-08-17 01:55 | disposition home or self-care (01) ==
LOC: FB.ED 00:58
DX: S51.011A Laceration without foreign body of right elbow, initial encounter (principal); J44.9 Chronic obstructive pulmonary disease, unspecified; F41.9 Anxiety disorder, unspecified; F32.9 Major depressive disorder, single episode, unspecified; Z88.1 Allergy status to other antibiotic agents; Z88.5 Allergy status to narcotic agent; Z88.8 Allergy status to other drugs, medicaments and biological substances; Z79.899 Other long term (current) drug therapy; Z79.51 Long term (current) use of inhaled steroids; Z79.52 Long term (current) use of systemic steroids; W01.0XXA Fall on same level from slipping, tripping and stumbling without subsequent striking against object, initial encounter
CPT/HCPCS: 99282; 99284